=== PATIENT | female | born 1995 | race Caucasian/White ===

== ENCOUNTER 2016-05-13 10:58 | Emergency (ER) | payer MEDICAID ==
[2016-05-13] MEDS ORDERED: Sodium Chloride 0.9% 1,000 ML IV ONE (11:03)
--- NOTE | 2016-05-13 11:06 | EDM.PDOC ---
ED HPI GENERAL MEDICAL PROBLEM - General Stated Complaint: SEIZURES Time Seen by Provider: 05/13/16 11:02 - History of Present Illness INITIAL COMMENTS - FREE TEXT/NARRATIVE: HISTORY AND PHYSICAL: History of present illness: Patient is a 20 white female approximately 34 weeks with a known seizure disorder who said approximately 9 seizures since 2013 she does have a scheduled neurology appointment she is on no antiseizure medication she has seizure today with generalized witnessed at work her socioeconomically having bit her lip there is no other associated trauma she presents here awake alert oriented by paramedics. This time she denies abdominal pain vaginal bleeding or other concern Review of systems: As per history of present illness and below otherwise all systems reviewed and negative. Past medical history: As per history of present illness and as reviewed below otherwise noncontributory. Surgical history: As per history of present illness and as reviewed below otherwise noncontributory. Social history: No reported history of drug or alcohol abuse. Family history: As per history of present illness and as reviewed below otherwise noncontributory. Physical exam: HEENT: Atraumatic, normocephalic, pupils reactive, negative for conjunctival pallor or scleral icterus, mucous membranes moist, throat clear, neck supple, nontender, trachea midline. Lungs: Clear to auscultation, breath sounds equal bilaterally, chest nontender. Heart: S1S2, regular, negative for clicks, rubs, or JVD. Abdomen: Soft, nondistended, nontender. Negative for masses or hepatosplenomegaly. Negative for costovertebral tenderness. Pelvis: Stable nontender. Genitourinary: Deferred. Rectal: Deferred. Extremities: Atraumatic, negative for cords or calf pain. Neurovascular unremarkable. Neuro: Awake, alert, oriented. Cranial nerves II through XII unremarkable. Cerebellum unremarkable. Motor and sensory unremarkable throughout. Exam nonfocal. Diagnostics: CBC CMP prolactin UA urine drug screen Therapeutics: Normal saline 1 L bolus Impression: #1 seizure with known seizure disorder #2 34 week intrauterine Definitive disposition and diagnosis as appropriate pending reevaluation and review of above. - Related Data Allergies Allergy/AdvReac Type Severity Reaction Status Date / Time sulfamethoxazole Allergy Rash Verified 02/21/15 22:06 [From Bactrim] trimethoprim [From Bactrim] Allergy Rash Verified 02/21/15 22:06 Home Meds: Home Meds . [No Known Home Meds] 01/27/15 [History] Past Medical History Other HEENT History: tonsilectomy Cardiovascular History: Reports: None Respiratory History: Reports: None Gastrointestinal History: Reports: Chronic diarrhea Genitourinary History: Reports: None Other Genitourinary History: burning with urination DEPUTY OF COUNTER INTELLIGENCE History: Reports: Other OB/BYN History: states that she "she doesn't get periods". "cyst on ovaries" Other Musculoskeletal History: history of ankle surgery left Neurological History: Reports: Seizure, Other (see below) Other Neuro History: states seizures episodes related to "low sodium", never been investigated Psychiatric History: Reports: None Hematologic History: Reports: None Immunologic History: Reports: None Oncologic (Cancer) History: Reports: None Dermatologic History: Reports: Other (see below) Other Dermatologic History: rash - Past Surgical History HEENT Surgical History: Reports: Tonsillectomy Other HEENT Surgeries/Procedures: sore throat, difficulty swallowing Social & Family History - Family History Family Medical History: Noncontributory - Tobacco Use Smoking Status *Q: Unknown Ever Smoked Second Hand Smoke Exposure: No - Recreational Drug Use Recreational Drug Use: No Drug Use in Last 12 Months: No Recreational Drug Type: Reports: Heroin, Marijuana/Hashish Recreational Drug Use Frequency: Not Used In Over 1 Year ED ROS GENERAL - Review of Systems Review Of Systems: ROS reveals no pertinent complaints other than HPI. ED EXAM, GENERAL - Physical Exam Exam: See Below (See dictation) Course - Orders/Labs/Meds Orders: Active Orders 24 hr Category Date Time Status OB Ltd 1 or More Fetus [US] Stat Exams 05/13/16 11:18 Ordered COMPREHENSIVE METABOLIC PN,CMP [CHEM] Stat Lab 05/13/16 11:14 Received PROLACTIN [CHEM] Stat Lab 05/13/16 11:14 Received Sodium Chloride 0.9% [Normal Saline] 1,000 ml Med 05/13/16 11:03 Active IV STAT Medication Orders Sodium Chloride (Normal Saline) 1,000 mls @ 999 mls/hr IV STAT ONE Stop: 05/13/16 12:03 Last Admin: 05/13/16 11:16 Dose: 999 mls/hr Labs: Laboratory Tests 05/13/16 05/13/16 05/13/16 Range/Units 11:14 11:25 11:25 WBC 7.23 (4.0-11.0) K/uL RBC 4.50 (4.30-5.90) M/uL Hgb 12.6 (12.0-16.0) g/dL Hct 38.0 (36.0-46.0) % MCV 84.4 (80.0-98.0) fL MCH 28.0 (27.0-32.0) pg MCHC 33.2 (31.0-37.0) g/dL RDW Std Deviation 42.5 (28.0-62.0) fl RDW Coeff of Evon 14 (11.0-15.0) % Plt Count 155 (150-400) K/uL MPV 11.60 (7.40-12.00) fL Neut % (Auto) 63.5 (48.0-80.0) % Lymph % (Auto) 29.0 (16.0-40.0) % [place] % (Auto) 6.6 (0.0-15.0) % Eos % (Auto) 0.6 (0.0-7.0) % Baso % (Auto) 0.3 (0.0-1.5) % Neut # 4.6 (1.4-5.7) K/uL Lymph # 2.1 (0.6-2.4) K/uL [place] # 0.5 (0.0-0.8) K/uL Eos # 0.0 (0.0-0.7) K/uL Baso # 0.0 (0.0-0.1) K/uL Nucleated RBC % 0.0 /100WBC Nucleated RBCs # 0 K/uL Urine Color YELLOW Urine Appearance CLEAR Urine pH 5.5 (5.0-8.0) Ur Specific Stamps 1.020 (1.001-1.035) Urine Protein TRACE (NEGATIVE) mg/dL Urine Glucose (UA) NEGATIVE (NEGATIVE) mg/dL Urine Ketones NEGATIVE (NEGATIVE) mg/dL Urine Occult Blood NEGATIVE (NEGATIVE) Urine Nitrite NEGATIVE (NEGATIVE) Urine Bilirubin NEGATIVE (NEGATIVE) Urine Urobilinogen 0.2 (<2.0) EU/dL Ur Leukocyte Esterase NEGATIVE (NEGATIVE) Urine RBC 0-2 (0-2/HPF) Urine WBC 0-2 (0-5/HPF) Ur Epithelial Cells FEW (NONE-FEW) Urine Bacteria FEW (NEGATIVE) Urine Mucus LIGHT (NONE-MOD) Urine Opiates Screen NEGATIVE (NEGATIVE) Ur Oxycodone Screen NEGATIVE (NEGATIVE) Urine Methadone Screen NEGATIVE (NEGATIVE) Ur Barbiturates Screen NEGATIVE (NEGATIVE) Ur Phencyclidine Scrn NEGATIVE (NEGATIVE) Ur Amphetamine Screen NEGATIVE (NEGATIVE) U Methamphetamines Scrn NEGATIVE (NEGATIVE) U Benzodiazepines Scrn NEGATIVE (NEGATIVE) U Cocaine Metab Screen NEGATIVE (NEGATIVE) U Marijuana (THC) Screen NEGATIVE (NEGATIVE) Meds: Medications Generic Name Dose Route Start Last Admin Trade Name Freq PRN Reason Stop Dose Admin Sodium Chloride 1,000 mls @ 999 mls/hr 05/13/16 11:03 05/13/16 11:16 Normal Saline IV 05/13/16 12:03 999 mls/hr STAT ONE Administration Departure - Departure Time of Disposition: 11:51 Disposition: Home, Self-Care 01 Condition: good Clinical Impression: Third trimester , Seizure disorder Additional Instructions: The following information is given to patients seen in the emergency department who are being discharged to home. This information is to outline your options for follow-up care. We provide all patients seen in our emergency department with a follow-up referral. The need for follow-up, as well as the timing and circumstances, are variable depending upon the specifics of your emergency department visit. If you don't have a primary care physician on staff, we will provide you with a referral. We always advise you to contact your personal physician following an emergency department visit to inform them of the circumstance of the visit and for follow-up with them and/or the need for any referrals to a consulting specialist. The emergency department will also refer you to a specialist when appropriate. This referral assures that you have the opportunity for followup care with a specialist. All of these measure are taken in an effort to provide you with optimal care, which includes your followup. Under all circumstances we always encourage you to contact your private physician who remains a resource for coordinating your care. When calling for followup care, please make the office aware that this follow-up is from your recent emergency room visit. If for any reason you are refused follow-up, please contact the [facility] emergency department at and asked to speak to the emergency department charge nurse. 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
[2016-05-13 11:58] LABS: CHLORIDE,CL 110 mmol/L (98-110); SODIUM,NA 138 mmol/L (136-146)
--- NOTE | 2016-05-13 12:33 | US ---
EXAMINATION: Transabdominal obstetric ultrasound HISTORY: , seizure COMPARISON: 03/31/2016 TECHNIQUE: Grayscale, color Doppler, spectral Doppler images obtained transabdominally. FINDINGS: There is a single live intrauterine with a heart rate of 130 bpm. Placenta is an terior and appears grossly intact. Amniotic fluid index is normal. Biparietal diameter measures 8.4 cm, head circumference measures 30.1 cm, the abdominal circumference measures 30.3 cm, and the femor al length is 6.5 cm. This gives an estimated gestational age of 33 weeks and 5 days with an estimate d date of delivery at 06/26/2016. Overall the fetus is within the 61st percentile. IMPRESSION: Single live intrauterine .
[2016-05-13 13:49] VITALS: BP 106/49
== END 2016-05-13 12:35 | disposition other institution (70) ==
LOC: MW.ED 10:58
DX: O99.353 Diseases of the nervous system complicating pregnancy, third trimester (principal); G40.909 Epilepsy, unspecified, not intractable, without status epilepticus; Z3A.34 34 weeks gestation of pregnancy; Z88.2 Allergy status to sulfonamides; Z88.6 Allergy status to analgesic agent; Z98.890 Other specified postprocedural states
CPT/HCPCS: 36415; 76815; 80053; 81001; 84146; 85025; 96360; 99285; G0478; J7040; 80305; 99284

== ENCOUNTER 2016-05-13 12:30 | Outpatient (CLI) | payer MEDICAID ==
[2016-05-13] MEDS ORDERED: Acetaminophen 325 MG Tab PO PRN (12:39)
[2016-05-13] MEDS ORDERED: Acetaminophen 500 MG Tab PO PRN (12:54)
--- NOTE | 2016-05-13 22:38 | CONS ---
DATE OF CONSULTATION: DATE OF : 1995 PRIMARY CARE PHYSICIAN: None PCP HISTORY: Ms. Cates is a 20-year-old patient. She is 34 weeks plus 3 . She is followed in our clinic primarily by the nurse appraisal manager. The patient have a history of seizure and she came today to the emergency room. She said she passed out and she thinks she had a seizure at work her, that was not witnessed. The patient when she came to the emergency room she was not postictal and she was evaluated by the emergency room physician and her evaluation was essentially is normal. The patient is sent to labor and delivery for further evaluation of the . The patient have reactive NST. Her vital signs were stable. She was not bleeding. She was not dilated. The patient has history of seizure and she used to take medication for the seizure, but the patient discontinued the medication on her on few years back, because she cannot afford her medication. However, the patient stated she did not have any seizure all these years except unwitnessed, unverified seizure, she claimed, she had when she came to the emergency room. The patient used to be on Dilantin 100 mg p.o. t.i.d. She is scheduled to see our local neurologist in two weeks. I discussed this finding with the patient and I am going to start her back on her previous medicine of Dilantin 100 mg p.o. t.i.d. and I encouraged her to keep her OB appointment and to keep her neurology appointment, and we will update her medication in accordance with the recommendation of the consultation of the neurologist. PATRICIA / WILLIS /[id number]
== END 2016-05-13 17:33 | disposition home or self-care (01) ==
LOC: MW.OBCHECK 12:30 → MW.OB 12:33 → MW.OBCHECK 17:33
PROVIDERS: ATTEND Obstetrics & Gynecology
DX: Z34.90 Encounter for supervision of normal pregnancy, unspecified, unspecified trimester (principal); W19.XXXA Unspecified fall, initial encounter
CPT/HCPCS: 59025; A9270

== ENCOUNTER 2016-05-20 22:47 | Emergency (ER) | payer MEDICAID ==
--- NOTE | 2016-05-20 22:54 | EDM.PDOC ---
ED HPI GENERAL MEDICAL PROBLEM - General Chief Complaint: ENT Problem Stated Complaint: TOOTH PAIN/ 34WEEKS Time Seen by Provider: 05/20/16 22:51 - History of Present Illness INITIAL COMMENTS - FREE TEXT/NARRATIVE: HISTORY AND PHYSICAL: History of present illness: Patient is a 20-year-old female presented concern of toothache been worse over the last several days she does have a scheduled dentist appointment she is also she's had no problems with her has been going well and she's had regular care. Review of systems: As per history of present illness and below otherwise all systems reviewed and negative. Past medical history: As per history of present illness and as reviewed below otherwise noncontributory. Surgical history: As per history of present illness and as reviewed below otherwise noncontributory. Social history: No reported history of drug or alcohol abuse. Family history: As per history of present illness and as reviewed below otherwise noncontributory. Physical exam: HEENT: Atraumatic, normocephalic, pupils reactive, negative for conjunctival pallor or scleral icterus, mucous membranes moist, throat clear, neck supple, nontender, trachea midline. Ovaled dental caries noted some mild gingival edema bilateral lower molar region Lungs: Clear to auscultation, breath sounds equal bilaterally, chest nontender. Heart: S1S2, regular, negative for clicks, rubs, or JVD. Abdomen: Soft, nondistended, nontender. Negative for masses or hepatosplenomegaly. Negative for costovertebral tenderness. Pelvis: Stable nontender. Genitourinary: Deferred. Rectal: Deferred. Extremities: Atraumatic, negative for cords or calf pain. Neurovascular unremarkable. Neuro: Awake, alert, oriented. Cranial nerves II through XII unremarkable. Cerebellum unremarkable. Motor and sensory unremarkable throughout. Exam nonfocal. Diagnostics: None Therapeutics: None Impression: #1 dentalgia #2 multiple dental caries #3 rule out that the #4 intrauterine Definitive disposition and diagnosis as appropriate pending reevaluation and review of above. - Related Data Allergies Allergy/AdvReac Type Severity Reaction Status Date / Time sulfamethoxazole Allergy Rash Verified 05/13/16 12:34 [From Bactrim] trimethoprim [From Bactrim] Allergy Rash Verified 05/13/16 12:34 Home Meds: Home Meds Ondansetron HCl [Zofran] 4 mg PO DAILY 05/13/16 [History] Vits #93/Iron Fum/FA [ Formula Tablet] 1 each PO DAILY [History] Past Medical History Other HEENT History: tonsilectomy Cardiovascular History: Reports: None Respiratory History: Reports: None Gastrointestinal History: Reports: Chronic diarrhea Genitourinary History: Reports: None Other Genitourinary History: burning with urination AGENT BASED MODELER History: Reports: Other OB/BYN History: states that she "she doesn't get periods". "cyst on ovaries" Other Musculoskeletal History: history of ankle surgery left Neurological History: Reports: Seizure, Other (see below) Other Neuro History: states seizures episodes related to "low sodium", never been investigated Psychiatric History: Reports: None Hematologic History: Reports: None Immunologic History: Reports: None Oncologic (Cancer) History: Reports: None Dermatologic History: Reports: Other (see below) Other Dermatologic History: rash - Past Surgical History HEENT Surgical History: Reports: Tonsillectomy Other HEENT Surgeries/Procedures: sore throat, difficulty swallowing Social & Family History - Family History Family Medical History: Noncontributory - Tobacco Use Smoking Status *Q: Unknown Ever Smoked Second Hand Smoke Exposure: No - Recreational Drug Use Recreational Drug Use: No Drug Use in Last 12 Months: No Recreational Drug Type: Reports: Heroin, Marijuana/Hashish Recreational Drug Use Frequency: Not Used In Over 1 Year ED ROS GENERAL - Review of Systems Review Of Systems: ROS reveals no pertinent complaints other than HPI. ED EXAM, GENERAL - Physical Exam Exam: See Below (See dictation) Departure - Departure Time of Disposition: 22:53 Disposition: Home, Self-Care 01 Condition: good Clinical Impression: Dentalgia, Dental caries, Dental abscess Forms: ED Department Discharge Additional Instructions: The following information is given to patients seen in the emergency department who are being discharged to home. This information is to outline your options for follow-up care. We provide all patients seen in our emergency department with a follow-up referral. The need for follow-up, as well as the timing and circumstances, are variable depending upon the specifics of your emergency department visit. If you don't have a primary care physician on staff, we will provide you with a referral. We always advise you to contact your personal physician following an emergency department visit to inform them of the circumstance of the visit and for follow-up with them and/or the need for any referrals to a consulting specialist. The emergency department will also refer you to a specialist when appropriate. This referral assures that you have the opportunity for followup care with a specialist. All of these measure are taken in an effort to provide you with optimal care, which includes your followup. Under all circumstances we always encourage you to contact your private physician who remains a resource for coordinating your care. When calling for followup care, please make the office aware that this follow-up is from your recent emergency room visit. If for any reason you are refused follow-up, please contact the [facility] emergency department at and asked to speak to the emergency department charge nurse. Followup dentist as scheduled penicillin is prescribed Tylenol as directed follow up private medical doctor/AGENT BASED MODELER 24-48 hours and return as needed as discussed
[2016-05-20 23:03] VITALS: BP 140/80
== END 2016-05-20 23:02 | disposition home or self-care (01) ==
LOC: MW.ED 22:47
DX: K04.7 Periapical abscess without sinus (principal); Z88.2 Allergy status to sulfonamides; Z88.6 Allergy status to analgesic agent; Z79.899 Other long term (current) drug therapy; Z98.890 Other specified postprocedural states
CPT/HCPCS: 99283

== ENCOUNTER 2016-06-22 05:57 | Inpatient (IN) | payer MEDICAID ==
[2016-06-22] MEDS ORDERED: Sodium Chloride 0.9% 2.5 ML Syringe FLUSH PRN (06:07)
[2016-06-22] MEDS ORDERED: Misoprostol 200 MCG Tab PO PRN (06:07)
[2016-06-22] MEDS ORDERED: Nalbuphine 10 MG/1 ML Vial IVPUSH PRN (06:07)
[2016-06-22] MEDS ORDERED: Carboprost Tromethamine 250 MCG/1 ML Amp IM PRN (06:07)
[2016-06-22] MEDS ORDERED: Butorphanol 1 MG/ML SDV IVPUSH PRN (06:07)
[2016-06-22] MEDS ORDERED: Methylergonovine 0.2 MG/1 ML Amp IM PRN (06:07)
[2016-06-22] MEDS ORDERED: Terbutaline 1 MG/ML SDV SUBCUT PRN (06:07)
[2016-06-22] MEDS ORDERED: Water For Irrigation,Sterile 1,000 ML Container IRR PRN (06:07)
[2016-06-22] MEDS ORDERED: Lidocaine 1% 50 ML MDV INJECT PRN (06:07)
[2016-06-22] MEDS ORDERED: Sodium Chloride 0.9% 10 ML Syringe FLUSH PRN (06:07)
[2016-06-22] MEDS ORDERED: Oxytocin/Lactated Ringers 30 UNIT/500 ML BAG IV SCH ×2 (06:15)
[2016-06-22] MEDS: Lactated Ringers 1,000 ML IV SCH ×3 (07:28→15:06)
[2016-06-22] MEDS ORDERED: Misoprostol 25 MCG (1/4 of 100 MCG) Tab PO ONE (08:10)
[2016-06-22] MEDS ORDERED: Misoprostol 25 MCG (1/4 of 100 MCG) Tab VAG ONE (08:11)
--- NOTE | 2016-06-22 08:38 | PCM.LDHP ---
L&D History of Present Illness - General Date of Service: 06/22/16 Admit Problem/Dx: Patient Status Order with Admit Dx/Problem 06/22/16 06:07 Patient Status [ADT] Routine Admission Diagnosis/Problem Admission Diagnosis/Problem Source of Information: Patient History Limitations: Reports: No limitations - History of Present Illness Improves with: Reports: None Worsens with: Reports: None Associated Symptoms: Reports: N - Related Data Allergies/Adverse Reactions: Allergies Allergy/AdvReac Type Severity Reaction Status Date / Time sulfamethoxazole Allergy Rash Verified 05/13/16 12:34 [From Bactrim] trimethoprim [From Bactrim] Allergy Rash Verified 05/13/16 12:34 Home Medications: Home Meds Ondansetron HCl [Zofran] 4 mg PO DAILY 05/13/16 [History] Vits #93/Iron Fum/FA [ Formula Tablet] 1 each PO DAILY [History] Phenytoin 100 mg PO TID 06/22/16 [History] Past Medical History Other HEENT History: tonsilectomy Cardiovascular History: Reports: None Respiratory History: Reports: None Gastrointestinal History: Reports: Chronic diarrhea Genitourinary History: Reports: None Other Genitourinary History: 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 "cyst on ovaries" Other Musculoskeletal History: history of ankle surgery left Neurological History: Reports: Seizure, Other (see below) Other Neuro History: states seizures episodes related to "low sodium", never been investigated Psychiatric History: Reports: None Hematologic History: Reports: None Immunologic History: Reports: None Oncologic (Cancer) History: Reports: None Dermatologic History: Reports: Other (see below) Other Dermatologic History: rash - Past Surgical History HEENT Surgical History: Reports: Adenoidectomy, Tonsillectomy Social & Family History - Family History Family Medical History: Noncontributory Cardiac: Reports: Other (see below) Other Cardiac Family History: "heart disease" Endocrine/Metabolic: Reports: Diabetes, type I, Diabetes, type II - Tobacco Use Smoking Status *Q: Never Smoker Second Hand Smoke Exposure: No - Caffeine Use Caffeine Use: Reports: None - Recreational Drug Use Recreational Drug Use: No Drug Use in Last 12 Months: No Recreational Drug Type: Reports: Heroin, Marijuana/Hashish Recreational Drug Use Frequency: Not Used In Over 1 Year H&P Review of Systems - Review of Systems: Review Of Systems: See Below General: Reports: no symptoms HEENT: Reports: no symptoms Pulmonary: Reports: No Symptoms Cardiovascular: Reports: no symptoms Gastrointestinal: Reports: No symptoms Genitourinary: Reports: no symptoms Musculoskeletal: Reports: no symptoms Skin: Reports: no symptoms Psychiatric: Reports: no symptoms Neurological: Reports: No Symptoms Hematologic/Lymphatic: Reports: no symptoms Immunologic: Reports: no symptoms L&D Exam - Exam Exam: See Below - Vital Signs Weight: 90.5 kg - OB Specific Contraction Intensity: Mild movement: active heart tones: present heart tones per min: 129 Presentation: Vertex - Patient Data Lab Results last 24 hrs: Laboratory Results - last 24 hr 06/22/16 06/22/16 Range/Units 06:46 06:46 WBC 8.75 (4.0-11.0) K/uL RBC 4.31 (4.30-5.90) M/uL Hgb 12.4 (12.0-16.0) g/dL Hct 36.8 (36.0-46.0) % MCV 85.4 (80.0-98.0) fL MCH 28.8 (27.0-32.0) pg MCHC 33.7 (31.0-37.0) g/dL RDW Std Deviation 41.4 (28.0-62.0) fl RDW Coeff of Evon 14 (11.0-15.0) % Plt Count 175 (150-400) K/uL MPV 11.70 (7.40-12.00) fL Blood Type O NEGATIVE Antibody Screen NEGATIVE Result Diagrams: 06/22/16 06:46 Problem List Initiated/Reviewed/Updated: Yes Orders Last 24hrs: Active Orders 24 hr Category Date Time Status Patient Status [ADT] Routine ADT 06/22/16 06:07 Active Bedrest Bathroom Privileges [RC] ASDIRECTED Care 06/22/16 06:07 Active Communication Order [RC] ASDIRECTED Care 06/22/16 06:07 Active Communication Order [RC] ASDIRECTED Care 06/22/16 06:07 Active Heart Tones [RC] CONTINUOUS Care 06/22/16 06:07 Active Non Stress Test [RC] PER UNIT ROUTINE Care 06/22/16 06:07 Active May Shower [RC] ASDIRECTED Care 06/22/16 06:07 Active Notify Provider [RC] PRN Care 06/22/16 06:07 Active Notify Provider [RC] PRN Care 06/22/16 06:07 Active Oxygen Therapy [RC] ASDIRECTED Care 06/22/16 06:07 Active Peripheral IV Care [RC] . DIRECTED Care 06/22/16 06:07 Active Up ad Vera [RC] ASDIRECTED Care 06/22/16 06:07 Active Vaginal Exam [RC] PRN Care 06/22/16 06:07 Active Vaginal Exam [RC] PRN Care 06/22/16 06:07 Active Vital Signs [RC] PER UNIT ROUTINE Care 06/22/16 06:07 Active Vital Signs [RC] PER UNIT ROUTINE Care 06/22/16 06:07 Active Regular Diet [DIET] Diet 06/22/16 Lunch Active Butorphanol [Stadol] Med 06/22/16 06:07 Active 1 mg IVPUSH ASDIRECTED PRN Carboprost Tromethamine [Hemabate DS] Med 06/22/16 06:07 Active 250 mcg IM ASDIRECTED PRN Lactated Ringers [Ringers, Lactated] 1,000 ml Med 06/22/16 06:15 Active IV ASDIRECTED Lidocaine 1% [Xylocaine 1%] Med 06/22/16 06:07 Active 50 ml INJECT .ONCE PRN Methylergonovine [Methergine] Med 06/22/16 06:07 Active 0.2 mg IM ASDIRECTED PRN Misoprostol [Cytotec] Med 06/22/16 06:07 Active 200 mcg PO .ONCE PRN Nalbuphine [Nubain] Med 06/22/16 06:07 Active 10 mg IVPUSH ASDIRECTED PRN Oxytocin/Lactated Ringers [Pitocin in LR 30 Units/500 Med 06/22/16 06:15 Active ML] 30 unit in 500 ml IV TITRATE Sodium Chloride 0.9% [Saline Flush] Med 06/22/16 06:07 Active 10 ml FLUSH ASDIRECTED PRN Sodium Chloride 0.9% [Saline Flush] Med 06/22/16 06:07 Active 2.5 ml FLUSH ASDIRECTED PRN Terbutaline [Brethine] Med 06/22/16 06:07 Active 0.25 mg SUBCUT ASDIRECTED PRN Water For Irrigation,Sterile [Sterile Water for Med 06/22/16 06:07 Active Irrigation] 1,000 ml IRR ASDIRECTED PRN Scalp Electrode [WOMSER] Per Unit Routine Oth 06/22/16 06:07 Ordered Medication Administration Instruction [OM.PC] Q3H Oth 06/22/16 06:15 Ordered Peripheral IV Insertion Adult [OM.PC] Routine Oth 06/22/16 06:07 Ordered Resuscitation Status Routine Resus Stat 06/22/16 06:07 Ordered Medication Orders Butorphanol Tartrate (Stadol) 1 mg IVPUSH ASDIRECTED PRN PRN Reason: Pain Carboprost Tromethamine (Hemabate Ds) 250 mcg IM ASDIRECTED PRN PRN Reason: Post Hemorrhage Lactated Ringer's (Ringers, Lactated) 1,000 mls @ 150 mls/hr IV ASDIRECTED NITIN Last Admin: 06/22/16 07:28 Dose: 150 mls/hr Oxytocin/Lactated Ringer's (Pitocin In Lr 30 Units/500 Ml) 30 unit in 500 mls @ 2 mls/hr IV TITRATE NITIN; 2 MUNITS/MIN PRN Reason: Protocol Last Titration: 06/22/16 08:20 Dose: 0 munits/min, 0 mls/hr Titration: 06/22/16 08:01 Dose: 4 munits/min, 4 mls/hr Admin: 06/22/16 07:27 Dose: 2 munits/min, 2 mls/hr Lidocaine HCl (Xylocaine 1%) 50 ml INJECT .ONCE PRN PRN Reason: Laceration repair Methylergonovine Maleate (Methergine) 0.2 mg IM ASDIRECTED PRN PRN Reason: Post Hemorrhage Misoprostol (Cytotec) 200 mcg PO .ONCE PRN PRN Reason: Post Hemorrhage Nalbuphine HCl (Nubain) 10 mg IVPUSH ASDIRECTED PRN PRN Reason: Pain (severe 7-10) Stop: 06/24/16 06:08 Sodium Chloride (Saline Flush) 10 ml FLUSH ASDIRECTED PRN PRN Reason: Keep Vein Open Sodium Chloride (Saline Flush) 2.5 ml FLUSH ASDIRECTED PRN PRN Reason: Keep Vein Open Sterile Water (Sterile Water For Irrigation) 1,000 ml IRR ASDIRECTED PRN PRN Reason: delivery Terbutaline Sulfate (Brethine) 0.25 mg SUBCUT ASDIRECTED PRN PRN Reason: Tacysystole Assessment/Plan Comment:: Term admitted for induction cervical examination in 2-3 cm 50 vertex and out of the pelvis she is para 1001 the plan is to use side effects and Pitocin for induction.
[2016-06-22] MEDS ORDERED: fentaNYL 100 MCG/2 ML SDV ONE (14:24)
[2016-06-22] MEDS ORDERED: Ropivacaine 0.2% 2 MG/ML 20 ML SDV ONE (14:24)
[2016-06-22] MEDS ORDERED: Ropivacaine HCl/PF 100 ML ONE (14:24)
--- NOTE | 2016-06-22 15:14 | PCM.PREANE ---
Preanesthetic Assessment - Anesthesia/Transfusion/Family Hx Anesthesia History: Prior Anesthesia Without Reaction Family History of Anesthesia Reaction: No Transfusion History: No Prior Transfusion(s) - Review of Systems General: No Symptoms Pulmonary: No Symptoms Cardiovascular: No Symptoms Gastrointestinal: No symptoms Neurological: No Symptoms, Seizure (Had seizure recently) Other: Reports: None - Physical Assessment NPO Status Date: 06/22/16 NPO Status Time: 15:13 (cl liquids) Height: 1.73 m Weight: 90.5 kg ASA Class: 3 Mental Status: Alert & Oriented x3 Airway Class: Mallampati = 3 Dentition: Reports: Normal Dentition Thyro-Mental Finger Breadths: 3 Mouth Opening Finger Breadths: 3 Lungs: Clear to auscultation, Normal respiratory effort Cardiovascular: Regular Rate, Regular Rhythm - Lab Values: Laboratory Last Values WBC 8.75 K/uL (4.0-11.0) 06/22/16 06:46 RBC 4.31 M/uL (4.30-5.90) 06/22/16 06:46 Hgb 12.4 g/dL (12.0-16.0) 06/22/16 06:46 Hct 36.8 % (36.0-46.0) 06/22/16 06:46 MCV 85.4 fL (80.0-98.0) 06/22/16 06:46 MCH 28.8 pg (27.0-32.0) 06/22/16 06:46 MCHC 33.7 g/dL (31.0-37.0) 06/22/16 06:46 RDW Std Deviation 41.4 fl (28.0-62.0) 06/22/16 06:46 RDW Coeff of Evon 14 % (11.0-15.0) 06/22/16 06:46 Plt Count 175 K/uL (150-400) 06/22/16 06:46 MPV 11.70 fL (7.40-12.00) 06/22/16 06:46 Blood Type O NEGATIVE 06/22/16 06:46 Antibody Screen NEGATIVE 06/22/16 06:46 - Allergies Allergies/Adverse Reactions: Allergies Allergy/AdvReac Type Severity Reaction Status Date / Time sulfamethoxazole Allergy Rash Verified 05/13/16 12:34 [From Bactrim] trimethoprim [From Bactrim] Allergy Rash Verified 05/13/16 12:34 - Blood Blood Available: Yes Product(s) Available: PRBC - Acknowledgements Anesthesia Type Planned: Epidural Pt an Appropriate Candidate for the Planned Anesthesia: Yes Alternatives and Risks of Anesthesia Discussed w Pt/Guardian: Yes Pt/Guardian Understands and Agrees with Anesthesia Plan: Yes PreAnesthesia Questionnaire Other HEENT History: tonsilectomy Cardiovascular History: Reports: None, Other (see below) Other Cardiovascular History: gestational hypertension previous . Infrequent hypertension during this . Respiratory History: Reports: None Gastrointestinal History: Reports: Chronic diarrhea Other Gastrointestinal History: Pt states is resolved. Was from a medication. 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 "cyst on ovaries". reports that ovarian cysts resolved Other Musculoskeletal History: history of ankle surgery left Neurological History: Reports: Seizure, Other (see below) Other Neuro History: states seizures episodes related to "low sodium", never been investigated. seizures have been since last Psychiatric History: Reports: None Hematologic History: Reports: None Immunologic History: Reports: None Oncologic (Cancer) History: Reports: None Dermatologic History: Reports: Other (see below) Other Dermatologic History: rash - Past Surgical History HEENT Surgical History: Reports: Adenoidectomy, Tonsillectomy - SUBSTANCE USE Smoking Status *Q: Never Smoker Second Hand Smoke Exposure: No Recreational Drug Use History: No Recreational Drug Type: Reports: Heroin, Marijuana/Hashish - HOME MEDS Home Medications: Home Meds Ondansetron HCl [Zofran] 4 mg PO DAILY 05/13/16 [History] Vits #93/Iron Fum/FA [ Formula Tablet] 1 each PO DAILY [History] Phenytoin 100 mg PO TID 06/22/16 [History] - CURRENT (IN HOUSE) MEDS Current Meds: Current Medications Butorphanol Tartrate (Stadol) 1 mg IVPUSH ASDIRECTED PRN PRN Reason: Pain Carboprost Tromethamine (Hemabate Ds) 250 mcg IM ASDIRECTED PRN PRN Reason: Post Hemorrhage Lactated Ringer's (Ringers, Lactated) 1,000 mls @ 150 mls/hr IV ASDIRECTED NITIN Last Admin: 06/22/16 15:06 Dose: 150 mls/hr Oxytocin/Lactated Ringer's (Pitocin In Lr 30 Units/500 Ml) 30 unit in 500 mls @ 2 mls/hr IV TITRATE NITIN; 2 MUNITS/MIN PRN Reason: Protocol Last Titration: 06/22/16 12:12 Dose: 2 munits/min, 2 mls/hr Lidocaine HCl (Xylocaine 1%) 50 ml INJECT .ONCE PRN PRN Reason: Laceration repair Methylergonovine Maleate (Methergine) 0.2 mg IM ASDIRECTED PRN PRN Reason: Post Hemorrhage Misoprostol (Cytotec) 200 mcg PO .ONCE PRN PRN Reason: Post Hemorrhage Nalbuphine HCl (Nubain) 10 mg IVPUSH ASDIRECTED PRN PRN Reason: Pain (severe 7-10) Stop: 06/24/16 06:08 Sodium Chloride (Saline Flush) 10 ml FLUSH ASDIRECTED PRN PRN Reason: Keep Vein Open Sodium Chloride (Saline Flush) 2.5 ml FLUSH ASDIRECTED PRN PRN Reason: Keep Vein Open Sterile Water (Sterile Water For Irrigation) 1,000 ml IRR ASDIRECTED PRN PRN Reason: delivery Terbutaline Sulfate (Brethine) 0.25 mg SUBCUT ASDIRECTED PRN PRN Reason: Tacysystole Discontinued Medications Fentanyl (Sublimaze) Confirm Administered Dose 300 mcg .ROUTE .STK-MED ONE Stop: 06/22/16 14:25 Oxytocin/Lactated Ringer's (Pitocin In Lr 30 Units/500 Ml) 30 unit in 500 mls @ 500 mls/hr IV TITRATE NITIN PRN Reason: 500 MUNITS/MIN Stop: 06/22/16 07:14 Ropivacaine (Naropin 0.2%) Confirm Administered Dose 100 mls @ as directed .ROUTE .STK-MED ONE Stop: 06/22/16 14:25 Misoprostol (Cytotec) 25 mcg PO ONETIME ONE Stop: 06/22/16 08:11 Last Admin: 06/22/16 08:21 Dose: 25 mcg Misoprostol (Cytotec) 25 mcg VAG ONETIME ONE Stop: 06/22/16 08:12 Last Admin: 06/22/16 08:22 Dose: 25 mcg Ropivacaine (Naropin 0.2%) Confirm Administered Dose 20 ml .ROUTE .STK-MED ONE Stop: 06/22/16 14:25 - Free Text/Narrative Note: Labor Analgesia/Epidural Procedure start date: 06/22/16 time: 1421 Attending provider aware Chart reviewed Permit signed Labs reviewed VS/ FHR reviewed Pt identified/ID band Pt assessed Risks/Benefits discussed and accepted Monitors in place (BP, HR, SPO2) Patient, Site, Procedure Verification, Pause. Pain "10/10" Fluid bolus infused (fluid type and amount): 1000 ml LR Position: Sitting @ 1435 Prep: Betadine X 3 Sterile Drape Intradermal Wheal: 3 ml 1% Lidocaine Regional placement level: L4-5 Needle: 17 g Tuohy Approach: Midline Technique: MIRELLA glass syringe with 3 ml Sterile water MIRELLA needle depth: 8.5 cm Paresthesia: None Fluid Obtained: None Catheter insertion time: 1445 Catheter depth at skin: 18 cm Test Dose Time: 1445 RX: 3 ml 1.5% lidocaine with 1:200,000 epi Response: Negative Loading dose Time: 9249-6292 RX: 100 mcg fentanyl followed by 10 ml 0.2% ropivacaine in incremental doses Pt position: semi fowlers with KATIE Continuous infusion Start Time: 1457 RX: 100 ml 0.2% ropivacaine with 200 mcg fentanyl added [2mcg/ml] Continuous infusion rate: 9 ml/hr 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 Repositioned to right tilt but fetus intolerant. FHR only stable in semi fowlers with no tilt. 1523: Epidural dosed with 5 ml 0.5% ropivacaine for continued pain rating of "10/10" with contractions. Positioned to high fowlers. Pt advanced to 9 cm dilation over past hour. 1550: Pt continues to have right sided pain. Nursing staff to insert sweet catheter. Will remain in unit to assist prn. 1409: Dr Calderon here and baby delivered. VS and FHR monitored in unit post placement (See OB traceview for documentation. ) Procedure end date: 06/22/16 time: 1410
[2016-06-22] MEDS ORDERED: Bupivacaine 0.5% 10 ML SDV ONE (15:21)
[2016-06-22] MEDS ORDERED: Acetaminophen 500 MG Tab PO PRN (16:18)
[2016-06-22] MEDS ORDERED: Bisacodyl 10 MG Supp RECTAL PRN (16:18)
[2016-06-22] MEDS ORDERED: Benzocaine/Menthol 20%-0.5% Spray 78 GM Cannister TOP PRN (16:18)
[2016-06-22] MEDS ORDERED: oxyCODONE 5 MG Tab PO PRN (16:18)
[2016-06-22] MEDS ORDERED: Lanolin 100% Cream 7 GM Tube TOP PRN (16:18)
[2016-06-22] MEDS ORDERED: Docusate Sodium 100 MG Cap PO PRN (16:18)
[2016-06-22] MEDS ORDERED: Ibuprofen 400 MG Tab PO PRN (16:18)
[2016-06-22] MEDS: Ibuprofen 800 MG Tab PO PRN (18:55)
[2016-06-22] MEDS: Witch Hazel Medicated Pads 40/Jar TOP PRN (18:57)
--- NOTE | 2016-06-22 20:24 | PCM48HPAN ---
Post Anesthesia Note - EVALUATION WITHIN 48HRS OF ANESTHETIC Vital Signs in Normal Range: Yes Patient Participated in Evaluation: Yes Respiratory Function Stable: Yes Airway Patent: Yes Cardiovascular Function Stable: Yes Hydration Status Stable: Yes Pain Control Satisfactory: Yes Nausea and Vomiting Control Satisfactory: Yes Mental Status Recovered: Yes
[2016-06-22] MEDS: Acetaminophen 500 MG Tab PO PRN (22:43)
--- NOTE | 2016-06-22 23:32 | OR ---
SURGEON: Dave Calderon MD DATE OF PROCEDURE: DELIVER NOTE: Ms. Cates is a 20-year-old patient. She is para 1-0-0-1. She is post dates. 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 She is admitted for elective induction this morning. At the time of admission, she was 3 cm, 70%, vertex, and -3. She started on Cytotec, and then Pitocin. At 12 o'clock, she had an artificial rupture of the membrane with clear fluid. At that time, she was 3 to 4, 80, vertex, -3. The patient then progressed rather rapidly. She had epidural anesthesia for labor analgesia and she was able to accomplish normal spontaneous vaginal delivery. score reported to be 8 and 9. Male fetus. The weight is not available at this time. The placenta delivered spontaneous, complete, and intact. The perineum was intact. There is no laceration. No need for episiotomy. The heart rate was category 1 through the entire process of labor. There was no complication. Estimated blood loss is 350 mL. PATRICIA / WILLIS /[id number]
[2016-06-23] MEDS: Witch Hazel Medicated Pads 40/Jar TOP PRN (07:51)
[2016-06-23] MEDS: Ibuprofen 800 MG Tab PO PRN (07:51)
--- NOTE | 2016-06-23 08:34 | PCM.DCSUM1 ---
Discharge Summary - Discharge Data Discharge Date: 06/23/16 Discharge Disposition: Home, Self-Care 01 Condition: Good - Patient Instructions Diet: Usual Diet as Tolerated Activity: As Tolerated Driving: Do Not Drive Notify Provider of: Fever, Increased Pain, Swelling and Redness - Discharge Plan Home Medications: Home Meds Ondansetron HCl [Zofran] 4 mg PO DAILY 05/13/16 [History] Vits #93/Iron Fum/FA [ Formula Tablet] 1 each PO DAILY [History] Phenytoin 100 mg PO TID 06/22/16 [History] Referrals: [facility] [Outside] Dave Calderon MD [Physician] - 08/02/16 1:30 pm - Patient Data Vitals - Most Recent: Last Vital Signs Temp 37.0 C 06/23/16 04:18 Pulse 55 L 06/23/16 04:18 Resp 17 06/23/16 04:18 BP 114/58 L 06/23/16 04:18 Pulse Ox 98 06/23/16 04:18 Weight - Most Recent: 90.5 kg I&O - Last 24 hours: Intake & Output 06/22/16 06/23/16 06/23/16 22:59 06:59 14:59 Intake Total 2 Balance 2 Lab Results - Last 24 hrs: Laboratory Results - last 24 hr 06/22/16 06/23/16 Range/Units 17:21 04:41 Hgb 10.9 L (12.0-16.0) g/dL Hct 33.7 L (36.0-46.0) % Screen NEGATIVE RhIG Candidate? YES Rhogam Indicated YES, BABY RH POS H Med Orders - Current: Current Medications Acetaminophen (Tylenol Extra Strength) 500 mg PO Q4H PRN PRN Reason: Pain Acetaminophen (Tylenol Extra Strength) 1,000 mg PO Q4H PRN PRN Reason: Pain Last Admin: 06/22/16 22:43 Dose: 1,000 mg Benzocaine/Menthol (Dermoplast Pain Relief 20%-0.5% [place]) 78 gm TOP ASDIRECTED PRN PRN Reason: Perineal Comfort Measure Last Admin: 06/22/16 18:56 Dose: 1 can Bisacodyl (Dulcolax) 10 mg RECTAL .ONCE PRN PRN Reason: Constipation Butorphanol Tartrate (Stadol) 1 mg IVPUSH ASDIRECTED PRN PRN Reason: Pain Carboprost Tromethamine (Hemabate Ds) 250 mcg IM ASDIRECTED PRN PRN Reason: Post Hemorrhage Docusate Sodium (Colace) 100 mg PO BID PRN PRN Reason: Constipation Emollient Ointment (Lansinoh Hpa) 0 gm TOP ASDIRECTED PRN PRN Reason: Sore Nipples Lactated Ringer's (Ringers, Lactated) 1,000 mls @ 150 mls/hr IV ASDIRECTED NITIN Last Admin: 06/22/16 15:06 Dose: 150 mls/hr Oxytocin/Lactated Ringer's (Pitocin In Lr 30 Units/500 Ml) 30 unit in 500 mls @ 2 mls/hr IV TITRATE NITIN; 2 MUNITS/MIN PRN Reason: Protocol Last Titration: 06/22/16 16:00 Dose: 0 munits/min, 0 mls/hr Ibuprofen (Motrin) 400 mg PO Q4H PRN PRN Reason: Pain Ibuprofen (Motrin) 800 mg PO Q6H PRN PRN Reason: Pain Last Admin: 06/23/16 07:51 Dose: 800 mg Lidocaine HCl (Xylocaine 1%) 50 ml INJECT .ONCE PRN PRN Reason: Laceration repair Methylergonovine Maleate (Methergine) 0.2 mg IM ASDIRECTED PRN PRN Reason: Post Hemorrhage Misoprostol (Cytotec) 200 mcg PO .ONCE PRN PRN Reason: Post Hemorrhage Nalbuphine HCl (Nubain) 10 mg IVPUSH ASDIRECTED PRN PRN Reason: Pain (severe 7-10) Stop: 06/24/16 06:08 Oxycodone HCl (Oxycodone) 5 mg PO Q2H PRN PRN Reason: Pain Sodium Chloride (Saline Flush) 10 ml FLUSH ASDIRECTED PRN PRN Reason: Keep Vein Open Sodium Chloride (Saline Flush) 2.5 ml FLUSH ASDIRECTED PRN PRN Reason: Keep Vein Open Sterile Water (Sterile Water For Irrigation) 1,000 ml IRR ASDIRECTED PRN PRN Reason: delivery Terbutaline Sulfate (Brethine) 0.25 mg SUBCUT ASDIRECTED PRN PRN Reason: Tacysystole Shreyas Mackenzie (Tucks) 1 pad TOP ASDIRECTED PRN PRN Reason: comfort care Last Admin: 06/23/16 07:51 Dose: 1 tub Discontinued Medications Bupivacaine HCl (Sensorcaine-Mpf 0.5%) Confirm Administered Dose 10 ml .ROUTE .STK-MED ONE Stop: 06/22/16 15:22 Fentanyl (Sublimaze) Confirm Administered Dose 300 mcg .ROUTE .STK-MED ONE Stop: 06/22/16 14:25 Oxytocin/Lactated Ringer's (Pitocin In Lr 30 Units/500 Ml) 30 unit in 500 mls @ 500 mls/hr IV TITRATE NITIN PRN Reason: 500 MUNITS/MIN Stop: 06/22/16 07:14 Ropivacaine (Naropin 0.2%) Confirm Administered Dose 100 mls @ as directed .ROUTE .STK-MED ONE Stop: 06/22/16 14:25 Misoprostol (Cytotec) 25 mcg PO ONETIME ONE Stop: 06/22/16 08:11 Last Admin: 06/22/16 08:21 Dose: 25 mcg Misoprostol (Cytotec) 25 mcg VAG ONETIME ONE Stop: 06/22/16 08:12 Last Admin: 06/22/16 08:22 Dose: 25 mcg Ropivacaine (Naropin 0.2%) Confirm Administered Dose 20 ml .ROUTE .STK-MED ONE Stop: 06/22/16 14:25 - Exam General: Reports: alert, oriented HEENT: Reports: Pupils equal, Pupils reactive, EOMI, Mucous membr. moist/pink Neck: Reports: supple Lungs: Reports: Clear to auscultation, Normal respiratory effort Cardiovascular: Reports: Regular Rate, Regular Rhythm Abdomen: Reports: bowel sounds present, soft, no tenderness, no distension (Female) Exam: Normal external exam, Normal speculum exam, Normal bimanual exam Rectal (Female) Exam: Normal Exam, Normal rectal tone Back Exam: Reports: normal inspection, full range of motion Extremities: Reports: no edema, normal pulses Skin: Reports: warm, dry, intact Wound/Incisions: Reports: healing well Neurological: Reports: no new focal deficit Psy/Mental Status: Reports: alert, normal affect, normal mood *Q Meaningful Use (DIS) - VTE *Q VTE Criteria *Q: - Stroke *Q Stroke Criteria *Q: - AMI *Q AMI Criteria *Q:
--- NOTE | 2016-06-23 08:34 | PCM.PNPP ---
- General Info Date of Service: 06/23/16 Functional Status: Reports: pain controlled - Review of Systems General: Reports: No Symptoms HEENT: Reports: no symptoms Pulmonary: Reports: no symptoms Cardiovascular: Reports: No Symptoms Gastrointestinal: Reports: No symptoms Genitourinary: Reports: no symptoms Musculoskeletal: Reports: no symptoms Skin: Reports: no symptoms Neurological: Reports: No Symptoms Psychiatric: Reports: no symptoms - General Info Date of Service: 06/23/16 - Patient Data Vital Signs - most recent: Last Vital Signs Temp 37.0 C 06/23/16 04:18 Pulse 55 L 06/23/16 04:18 Resp 17 06/23/16 04:18 BP 114/58 L 06/23/16 04:18 Pulse Ox 98 06/23/16 04:18 Weight - most recent: 90.5 kg I&O - last 24 hours: Intake & Output 06/22/16 06/23/16 06/23/16 22:59 06:59 14:59 Intake Total 2 Balance 2 Lab Results - last 24 hrs: Laboratory Results - last 24 hr 06/22/16 06/23/16 Range/Units 17:21 04:41 Hgb 10.9 L (12.0-16.0) g/dL Hct 33.7 L (36.0-46.0) % Screen NEGATIVE RhIG Candidate? YES Rhogam Indicated YES, BABY RH POS H Med Orders - Current: Current Medications Acetaminophen (Tylenol Extra Strength) 500 mg PO Q4H PRN PRN Reason: Pain Acetaminophen (Tylenol Extra Strength) 1,000 mg PO Q4H PRN PRN Reason: Pain Last Admin: 06/22/16 22:43 Dose: 1,000 mg Benzocaine/Menthol (Dermoplast Pain Relief 20%-0.5% [place]) 78 gm TOP ASDIRECTED PRN PRN Reason: Perineal Comfort Measure Last Admin: 06/22/16 18:56 Dose: 1 can Bisacodyl (Dulcolax) 10 mg RECTAL .ONCE PRN PRN Reason: Constipation Butorphanol Tartrate (Stadol) 1 mg IVPUSH ASDIRECTED PRN PRN Reason: Pain Carboprost Tromethamine (Hemabate Ds) 250 mcg IM ASDIRECTED PRN PRN Reason: Post Hemorrhage Docusate Sodium (Colace) 100 mg PO BID PRN PRN Reason: Constipation Emollient Ointment (Lansinoh Hpa) 0 gm TOP ASDIRECTED PRN PRN Reason: Sore Nipples Lactated Ringer's (Ringers, Lactated) 1,000 mls @ 150 mls/hr IV ASDIRECTED NITIN Last Admin: 06/22/16 15:06 Dose: 150 mls/hr Oxytocin/Lactated Ringer's (Pitocin In Lr 30 Units/500 Ml) 30 unit in 500 mls @ 2 mls/hr IV TITRATE NITIN; 2 MUNITS/MIN PRN Reason: Protocol Last Titration: 06/22/16 16:00 Dose: 0 munits/min, 0 mls/hr Ibuprofen (Motrin) 400 mg PO Q4H PRN PRN Reason: Pain Ibuprofen (Motrin) 800 mg PO Q6H PRN PRN Reason: Pain Last Admin: 06/23/16 07:51 Dose: 800 mg Lidocaine HCl (Xylocaine 1%) 50 ml INJECT .ONCE PRN PRN Reason: Laceration repair Methylergonovine Maleate (Methergine) 0.2 mg IM ASDIRECTED PRN PRN Reason: Post Hemorrhage Misoprostol (Cytotec) 200 mcg PO .ONCE PRN PRN Reason: Post Hemorrhage Nalbuphine HCl (Nubain) 10 mg IVPUSH ASDIRECTED PRN PRN Reason: Pain (severe 7-10) Stop: 06/24/16 06:08 Oxycodone HCl (Oxycodone) 5 mg PO Q2H PRN PRN Reason: Pain Sodium Chloride (Saline Flush) 10 ml FLUSH ASDIRECTED PRN PRN Reason: Keep Vein Open Sodium Chloride (Saline Flush) 2.5 ml FLUSH ASDIRECTED PRN PRN Reason: Keep Vein Open Sterile Water (Sterile Water For Irrigation) 1,000 ml IRR ASDIRECTED PRN PRN Reason: delivery Terbutaline Sulfate (Brethine) 0.25 mg SUBCUT ASDIRECTED PRN PRN Reason: Tacysystole Witch Avril (Tucks) 1 pad TOP ASDIRECTED PRN PRN Reason: comfort care Last Admin: 06/23/16 07:51 Dose: 1 tub Discontinued Medications Bupivacaine HCl (Sensorcaine-Mpf 0.5%) Confirm Administered Dose 10 ml .ROUTE .STK-MED ONE Stop: 06/22/16 15:22 Fentanyl (Sublimaze) Confirm Administered Dose 300 mcg .ROUTE .STK-MED ONE Stop: 06/22/16 14:25 Oxytocin/Lactated Ringer's (Pitocin In Lr 30 Units/500 Ml) 30 unit in 500 mls @ 500 mls/hr IV TITRATE NITIN PRN Reason: 500 MUNITS/MIN Stop: 06/22/16 07:14 Ropivacaine (Naropin 0.2%) Confirm Administered Dose 100 mls @ as directed .ROUTE .STK-MED ONE Stop: 06/22/16 14:25 Misoprostol (Cytotec) 25 mcg PO ONETIME ONE Stop: 06/22/16 08:11 Last Admin: 06/22/16 08:21 Dose: 25 mcg Misoprostol (Cytotec) 25 mcg VAG ONETIME ONE Stop: 06/22/16 08:12 Last Admin: 06/22/16 08:22 Dose: 25 mcg Ropivacaine (Naropin 0.2%) Confirm Administered Dose 20 ml .ROUTE .STK-MED ONE Stop: 06/22/16 14:25 - Interaction Disposition, : in Room with Family Infant Interaction: Holding Infant Feeding: Attempted ; Nursed Fair/Poor Support Person: Mother - Recovery Exam Fundal Tone: Firm Fundal Level: At Umbilicus Fundal Placement: Midline Lochia Amount: Small Lochia Color: Rubra/Red Perineum Description: Intact, Minimal Bruising/Swelling Episiotomy/Laceration: None Bladder Status: Voiding Urinary Elimination: Voided - Exam General: alert, oriented HEENT: Pupils equal Neck: supple Lungs: Clear to auscultation, Normal respiratory effort Cardiovascular: Regular Rate, Regular Rhythm Abdomen: bowel sounds present, soft, no tenderness, no distension Extremities: no edema Skin: warm, dry, intact Wound/Incisions: healing well Neurological: no new focal deficit Psy/Mental Status: alert, normal affect, normal mood - Problem List Review Problem List Initiated/Reviewed/Updated: Yes - My Orders Last 24 Hours: My Active Orders 06/22/16 16:18 Patient Status [ADT] Routine May Shower [RC] ASDIRECTED Up ad Vera [RC] ASDIRECTED Acetaminophen [Tylenol Extra Strength] 1,000 mg PO Q4H PRN Acetaminophen [Tylenol Extra Strength] 500 mg PO Q4H PRN Benzocaine/Menthol [Dermoplast Pain Relief 20%-0.5% [place]] 78 gm TOP ASDIRECTED PRN Bisacodyl [Dulcolax] 10 mg RECTAL .ONCE PRN Docusate Sodium [Colace] 100 mg PO BID PRN Ibuprofen [Motrin] 400 mg PO Q4H PRN Ibuprofen [Motrin] 800 mg PO Q6H PRN Lanolin [Lansinoh HPA] See Dose Instructions TOP ASDIRECTED PRN Witch Avril [Tucks] 1 pad TOP ASDIRECTED PRN oxyCODONE 5 mg PO Q2H PRN Assess Lochia [WOMSER] Per Unit Routine Assess Uterine Involution [WOMSER] Per Unit Routine Peripheral IV Discontinue [OM.PC] Routine 06/22/16 Lunch Regular Diet [DIET] - Plan Plan:: Term admitted for induction cervical examination in 2-3 cm 50 vertex and out of the pelvis she is para 1001 the plan is to use side effects and Pitocin for induction.
[2016-06-23] MEDS: Acetaminophen 500 MG Tab PO PRN (12:41)
[2016-06-23 15:37] VITALS: BP 108/58
== END 2016-06-23 18:50 | disposition home or self-care (01) | DRG 775 ==
LOC: MW.OBCHECK 05:57 → MW.OB 05:59 → MW.OBCHECK 06:07 → OBSVTOIN 16:09
PROVIDERS: ADMIT Obstetrics & Gynecology; ATTEND Advanced Practice Midwife
PROC: 10E0XZZ Delivery of Products of Conception, External Approach (ICD-10-PCS; principal; 2016-06-22)
PROC: 10907ZC Drainage of Amniotic Fluid, Therapeutic from Products of Conception, Via Natural or Artificial Opening (ICD-10-PCS; 2016-06-22)
PROC: 3E0P7GC Introduction of Other Therapeutic Substance into Female Reproductive, Via Natural or Artificial Opening (ICD-10-PCS; 2016-06-22)
PROC: 3E033VJ Introduction of Other Hormone into Peripheral Vein, Percutaneous Approach (ICD-10-PCS; 2016-06-22)
DX: O80 Encounter for full-term uncomplicated delivery (principal); Z3A.40 40 weeks gestation of pregnancy; Z37.0 Single live birth
CPT/HCPCS: 01967; 36415; 59025; 85014; 85018; 85027; 85460; 86850; 86900; 86901; A9270-GY; J2790; J2795; J3010; J7120

== ENCOUNTER 2016-07-11 18:35 | Emergency (ER) | payer MEDICAID, OTHER ==
[2016-07-11 18:46] VITALS: BP 120/62
[2016-07-11] MEDS ORDERED: Ibuprofen 600 MG Tab PO ONE (18:52)
--- NOTE | 2016-07-11 19:17 | EDM.PDOC ---
ED HPI Trauma - General Chief Complaint: Upper Extremity Injury/Pain Stated Complaint: POSSIBLE BROKEN RIGHT ARM Time Seen by Provider: 07/11/16 18:40 Source: Reports: Patient History Limitations: Reports: No limitations - History of Present Illness INITIAL COMMENTS - FREE TEXT/NARRATIVE: HISTORY AND PHYSICAL: History of present illness: [] Review of systems: As per history of present illness and below otherwise all systems reviewed and negative. Past medical history: As per history of present illness and as reviewed below otherwise noncontributory. Surgical history: As per history of present illness and as reviewed below otherwise noncontributory. Social history: No reported history of drug or alcohol abuse. Family history: As per history of present illness and as reviewed below otherwise noncontributory. HEENT: Normocephalic, atraumatic, pupils normal and symmetrical, supple neck, no meningismus, normal color Lungs: Normal and symmetrical chest wall excursion bilateral with no tachypnea or increased work of breathing, grossly normal chest exam Heart: No tachycardia in triage Abdomen: Normal-appearing, nondistended, no visible mass or asymmetry Pelvis: Normal-appearing Genitourinary: Deferred Rectal exam: Deferred Extremities: Atraumatic, normal use and range of motion, no visible evidence of gross neurovascular compromise . Soft tissue swelling ulnar aspect of distal right forearm. tenderness , no deformity. Normal range of motion of wrist mildly limited by discomfort.neurovascularly intact distally. Nontender proximal forearm elbow. Soft compartments Neuro: Awake, alert, oriented. Normal and appropriate mental status. Cranial nerves grossly unremarkable. Motor function normal. Nonfocal neurologic exam. Diagnostics: [X-ray right forearm and wrist] Therapeutics: [Profen by mouth] Impression: [] Plan: [Signs and symptoms consistent with contusion and mild hematoma versus nondisplaced fracture ulnar aspect distal right forearm. No significant deformity. Patient initially had good range of motion however when swelling evolved it became limited by discomfort. Injury was yesterday. X-ray pending. X-ray interpreted by me with nondisplaced fracture transverse distal one third ulna no angulation. Splint applied by nurse and ALANA maria [facility] REBECA neurovascularly intact status post application. Patient given sling. She is aware to remove the sling and range of motion her shoulder multiple times a day. Followup with PCP and with orthopedics clinic with Dr. Carmen Ballard. Patient aware to take ibuprofen and Tylenol as needed for pain Definitive disposition and diagnosis as appropriate pending reevaluation and review of above. Allergies/ADRs: Allergies sulfamethoxazole [From Bactrim] Allergy (Verified 07/11/16 18:41) Rash trimethoprim [From Bactrim] Allergy (Verified 07/11/16 18:41) Rash Home Medications: Ambulatory Orders Phenytoin [Dilantin] 30 mg PO DAILY 07/11/16 [Confirmed 07/11/16] Past Medical History Other HEENT History: tonsilectomy Cardiovascular History: Reports: None, Other (see below) Other Cardiovascular History: gestational hypertension previous . Infrequent hypertension during this . Respiratory History: Reports: None Gastrointestinal History: Reports: Chronic diarrhea Other Gastrointestinal History: Pt states is resolved. Was from a medication. 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 "cyst on ovaries". reports that ovarian cysts resolved Other Musculoskeletal History: history of ankle surgery left Neurological History: Reports: Seizure, Other (see below) Other Neuro History: states seizures episodes related to "low sodium", never been investigated. seizures have been since last Psychiatric History: Reports: None Hematologic History: Reports: None Immunologic History: Reports: None Oncologic (Cancer) History: Reports: None Dermatologic History: Reports: Other (see below) Other Dermatologic History: rash - Past Surgical History HEENT Surgical History: Reports: Adenoidectomy, Tonsillectomy Social & Family History - Family History Family Medical History: Noncontributory Cardiac: Reports: Other (see below) Other Cardiac Family History: "heart disease" Endocrine/Metabolic: Reports: Diabetes, type I, Diabetes, type II - Tobacco Use Smoking Status *Q: Never Smoker Second Hand Smoke Exposure: No - Caffeine Use Caffeine Use: Reports: None - Recreational Drug Use Recreational Drug Use: No Drug Use in Last 12 Months: No Recreational Drug Type: Reports: Heroin, Marijuana/Hashish Recreational Drug Use Frequency: Not Used In Over 1 Year Review of Systems - Review of Systems Review Of Systems: See Below (per history of present illness) Trauma Exam - Physical Exam Exam: See Below (Per history of present illness) Course - Vital Signs Last Recorded V/S: Last Vital Signs Temp 36.1 C 07/11/16 18:45 Pulse 101 H 07/11/16 18:45 Resp 18 07/11/16 18:45 BP 120/62 07/11/16 18:45 Pulse Ox 97 07/11/16 18:45 - Orders/Labs/Meds Orders: Active Orders 24 hr Category Date Time Status Forearm 2V Rt [CR] Stat Exams 07/11/16 18:52 Taken Wrist Comp Min 3V Rt [CR] Stat Exams 07/11/16 18:49 Taken Meds: Medications Discontinued Medications Generic Name Dose Route Start Last Admin Trade Name [place] PRN Reason Stop Dose Admin Ibuprofen 600 mg 07/11/16 18:52 Motrin PO 07/11/16 18:53 ONETIME ONE Departure - Departure Time of Disposition: 19:33 Disposition: Home, Self-Care 01 Condition: good Clinical Impression: Right distal ulnar fracture, Right forearm pain Referrals: PCP,None [Primary Care Provider] - Forms: ED Department Discharge Additional Instructions: As discussed, you have a nondisplaced fracture towards the end of your ulna. Rest ice elevate and wear splint until otherwise directed by orthopedics. Followup with Dr. Carmen Ballard the orthopedic DrMadai in several days for reevaluation and application of cast for definitive fracture care . use ibuprofen and Tylenol as needed for pain - My Orders Last 24 Hours: My Active Orders 07/11/16 18:49 Wrist Comp Min 3V Rt [CR] Stat 07/11/16 18:52 Forearm 2V Rt [CR] Stat - Assessment/Plan Last 24 Hours: My Active Orders 07/11/16 18:49 Wrist Comp Min 3V Rt [CR] Stat 07/11/16 18:52 Forearm 2V Rt [CR] Stat
--- NOTE | 2016-07-12 15:18 | CR ---
EXAM DATE: 07/11/16 PATIENT'S AGE: 20 Patient: REGGIE ADAM Facility: [place], [place] Site . Site : 1995 Study: XRay Extremity Right [id number]/1/2017 7:23:45 PM Ordering Physician: Lalito Atkinson Final Report: INDICATION: Wrist pain from a fall TECHNIQUE: Wrist radiograph 3 views right COMPARISON: None FINDINGS: Bones: There is a transverse nondisplaced fracture in the distal ulnar diaphysis. Joint spaces: The radiocarpal, carpal, and carpometacarpal joints are unremarkable in appearance. Soft tissues: Soft tissue swelling over the ulnar fracture site noted. No radiopaque foreign bodies are noted. IMPRESSION: 1. There is a transverse nondisplaced fracture in the distal ulnar diaphysis. Dictated by Sukhdeep Badillo MD @ 07/11/2016 7:47:08 PM Dictated by: Sukhdeep Badillo MD @ 07/11/2016 19:47:13 (Electronic Signature) Report Signed by Proxy. [facility] HOSPITALDemarco
--- NOTE | 2016-07-12 15:19 | CR ---
EXAM DATE: 07/11/16 PATIENT'S AGE: 20 Patient: REGGIE ADAM Facility: [place], [place] Site . Site : 1995 Study: XRay Extremity Right [id number]/1/2017 7:24:47 PM Ordering Physician: Lalito Atkinson Final Report: INDICATION: Forearm pain from a fall TECHNIQUE: Forearm radiograph 2 views right COMPARISON: None FINDINGS: Bones: Alignment is normal. There is a transverse nondisplaced fracture in the distal ulnar diaphysis. Joint spaces: The visualized radiocarpal and elbow joints are unremarkable. The elbow joint is not profiled and if there is pain or tenderness in this region, dedicated views of the elbow are recommended. Soft tissues: Soft tissue swelling over the ulnar fracture site is seen. No radiopaque foreign bodies are noted. IMPRESSION: 1. There is a transverse nondisplaced fracture in the distal ulnar diaphysis. Dictated by Sukhdeep Badillo MD @ 07/11/2016 7:47:59 PM Dictated by: Sukhdeep Badillo MD @ 07/11/2016 19:48:04 (Electronic Signature) Report Signed by Proxy. AJAY
== END 2016-07-11 19:54 | disposition home or self-care (01) ==
LOC: MW.ED 18:35
DX: S52.601A Unspecified fracture of lower end of right ulna, initial encounter for closed fracture (principal); Z88.2 Allergy status to sulfonamides; Z98.890 Other specified postprocedural states; W18.09XA Striking against other object with subsequent fall, initial encounter
CPT/HCPCS: 29125; 73090; 73110; 99282; A4566

== ENCOUNTER 2017-05-01 04:08 | Inpatient (IN) | payer SELFPAY ==
[2017-05-01] MEDS ORDERED: Butorphanol 1 MG/ML SDV IVPUSH PRN (04:40)
[2017-05-01] MEDS ORDERED: Sodium Chloride 0.9% 10 ML Syringe FLUSH PRN (04:40)
[2017-05-01] MEDS ORDERED: Lidocaine 1% 50 ML MDV INJECT PRN (04:40)
[2017-05-01] MEDS ORDERED: Sodium Chloride 0.9% 2.5 ML Syringe FLUSH PRN (04:40)
[2017-05-01] MEDS ORDERED: Carboprost Tromethamine 250 MCG/1 ML Amp IM PRN (04:40)
[2017-05-01] MEDS ORDERED: Water For Irrigation,Sterile 1,000 ML Container IRR PRN (04:40)
[2017-05-01] MEDS ORDERED: Misoprostol 200 MCG Tab PO PRN (04:40)
[2017-05-01] MEDS ORDERED: Methylergonovine 0.2 MG/1 ML Amp IM PRN (04:40)
[2017-05-01] MEDS ORDERED: Tranexamic Acid 1,000 MG in Sodium Chloride 0.9% 100 ML IV PRN (04:40)
[2017-05-01] MEDS ORDERED: Nalbuphine 10 MG/1 ML Vial IVPUSH PRN ×2 (04:40→07:43)
[2017-05-01] MEDS ORDERED: Lactated Ringers 1,000 ML IV SCH ×2 (04:45→07:45)
--- NOTE | 2017-05-01 05:06 | PCM.LDHP ---
L&D History of Present Illness - General Date of Service: 05/01/17 Admit Problem/Dx: Patient Status Order with Admit Dx/Problem 05/01/17 04:41 Patient Status [ADT] Routine Admission Diagnosis/Problem Admission Diagnosis/Problem 05/01/17 05:00 21 yo EDC 05/09/2017 38 6/7wks comes today due to mary bleeding in 3rd trimester, O-, R-NI, GBS neg. Source of Information: Patient History Limitations: Reports: No Limitations - History of Present Illness Improves with: Reports: None Worsens with: Reports: None Associated Symptoms: Reports: N - Related Data Allergies/Adverse Reactions: Allergies Allergy/AdvReac Type Severity Reaction Status Date / Time sulfamethoxazole Allergy Rash Verified 07/11/16 18:41 [From Bactrim] trimethoprim [From Bactrim] Allergy Rash Verified 07/11/16 18:41 Home Medications: Home Meds Phenytoin [Dilantin] 30 mg PO DAILY 07/11/16 [History] Past Medical History Other HEENT History: tonsilectomy Cardiovascular History: Reports: None, Other (See Below) Other Cardiovascular History: gestational hypertension previous . Infrequent hypertension during this . Respiratory History: Reports: None Gastrointestinal History: Reports: Chronic Diarrhea Other Gastrointestinal History: Pt states is resolved. Was from a medication. 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 "cyst on ovaries". reports that ovarian cysts resolved Other Musculoskeletal History: history of ankle surgery left Neurological History: Reports: Seizure, Other (See Below) Other Neuro History: states seizures episodes related to "low sodium", never been investigated. seizures have been since last Psychiatric History: Reports: None Hematologic History: Reports: None Immunologic History: Reports: None Oncologic (Cancer) History: Reports: None Dermatologic History: Reports: Other (See Below) Other Dermatologic History: rash - Past Surgical History HEENT Surgical History: Reports: Adenoidectomy, Tonsillectomy Social & Family History - Family History Family Medical History: Noncontributory Cardiac: Reports: Other (See Below) Other Cardiac Family History: "heart disease" Endocrine/Metabolic: Reports: Diabetes, Type I, Diabetes, type II - Tobacco Use Smoking Status *Q: Never Smoker Second Hand Smoke Exposure: No - Caffeine Use Caffeine Use: Reports: None - Recreational Drug Use Recreational Drug Use: No Drug Use in Last 12 Months: No Recreational Drug Type: Reports: Heroin, Marijuana/Hashish Recreational Drug Use Frequency: Not Used In Over 1 Year H&P Review of Systems - Review of Systems: Review Of Systems: See Below General: Reports: No Symptoms HEENT: Reports: No Symptoms Pulmonary: Reports: No Symptoms Cardiovascular: Reports: No Symptoms Gastrointestinal: Reports: No Symptoms Genitourinary: Reports: No Symptoms Musculoskeletal: Reports: No Symptoms Skin: Reports: No Symptoms Psychiatric: Reports: No Symptoms Neurological: Reports: No Symptoms Hematologic/Lymphatic: Reports: No Symptoms Immunologic: Reports: No Symptoms L&D Exam - Exam Exam: See Below - Vital Signs Weight: 98.883 kg - Exam General: Alert, Oriented, Cooperative HEENT: Hearing Intact Lungs: Normal Respiratory Effort Rectal Exam: Deferred Genitourinary: Vaginal bleeding Back Exam: Full Range of Motion Extremities: Normal Range of Motion, Non-Tender, No Pedal Edema, Normal Capillary Refill Skin: Warm, Dry, Intact Neurological: Reflexes Equal Bilateral, Normal Speech, Normal Tone Psychiatric: Alert, Normal Affect, Normal Mood - Patient Data Lab Results Last 24 hrs: Laboratory Results - last 24 hr 05/01/17 Range/Units 04:49 WBC 9.35 (4.0-11.0) K/uL RBC 4.74 (4.30-5.90) M/uL Hgb 13.4 (12.0-16.0) g/dL Hct 39.3 (36.0-46.0) % MCV 82.9 (80.0-98.0) fL MCH 28.3 (27.0-32.0) pg MCHC 34.1 (31.0-37.0) g/dL RDW Std Deviation 39.9 (28.0-62.0) fl RDW Coeff of Evon 13 (11.0-15.0) % Plt Count 166 (150-400) K/uL MPV 11.20 (7.40-12.00) fL Nucleated RBC % 0.0 /100WBC Nucleated RBCs # 0 K/uL Result Diagrams: 05/01/17 04:49 - Problem List (1) Supervision of normal IUP (intrauterine ) in multigravida SNOMED Code(s): 967040299, 756381219 ICD Code: Z34.80 - ENCOUNTER FOR SUPRVSN OF NORMAL , UNSP TRIMESTER Status: Acute Current Visit: Yes Qualifiers: Trimester: third trimester Qualified Code(s): Z34.83 - Encounter for supervision of other normal , third trimester (2) Third trimester bleeding SNOMED Code(s): 905800489 ICD Code: O46.93 - ANTEPARTUM HEMORRHAGE, UNSPECIFIED, THIRD TRIMESTER Status: Acute Priority: High Current Visit: Yes Problem List Initiated/Reviewed/Updated: Yes Orders Last 24hrs: Active Orders 24 hr Category Date Time Status Patient Status [ADT] Routine ADT 05/01/17 04:41 Active Heart Tones [RC] CONTINUOUS Care 05/01/17 04:41 Active Non Stress Test [RC] PER UNIT ROUTINE Care 05/01/17 04:41 Active May Shower [RC] ASDIRECTED Care 05/01/17 04:41 Active Notify Provider [RC] PRN Care 05/01/17 04:41 Active Up ad Vera [RC] ASDIRECTED Care 05/01/17 04:41 Active Vaginal Exam [RC] PRN Care 05/01/17 04:41 Active Vital Signs [RC] PER UNIT ROUTINE Care 05/01/17 04:41 Active TYPE AND SCREEN [BBK] Routine Lab 05/01/17 04:49 Received Butorphanol [Stadol] Med 05/01/17 04:40 Active 1 mg IVPUSH Q1H PRN Carboprost Tromethamine [Hemabate DS] Med 05/01/17 04:40 Active 250 mcg IM ASDIRECTED PRN Lactated Ringers [Ringers, Lactated] 1,000 ml Med 05/01/17 04:45 Active IV ASDIRECTED Lidocaine 1% [Xylocaine 1%] Med 05/01/17 04:40 Active 50 ml INJECT .ONCE PRN Methylergonovine [Methergine] Med 05/01/17 04:40 Active 0.2 mg IM ASDIRECTED PRN Misoprostol [Cytotec] Med 05/01/17 04:40 Active 200 mcg PO .ONCE PRN Nalbuphine [Nubain] Med 05/01/17 04:40 Active 10 mg IVPUSH Q1H PRN Sodium Chloride 0.9% [Saline Flush] Med 05/01/17 04:40 Active 10 ml FLUSH ASDIRECTED PRN Sodium Chloride 0.9% [Saline Flush] Med 05/01/17 04:40 Active 2.5 ml FLUSH ASDIRECTED PRN Tranexamic Acid [Cyklokapron] 1,000 mg Med 05/01/17 04:40 Active Sodium Chloride 0.9% [Normal Saline] 100 ml IV ONETIME Water For Irrigation,Sterile [Sterile Water for Med 05/01/17 04:40 Active Irrigation] 1,000 ml IRR ASDIRECTED PRN Scalp Electrode [WOMSER] Per Unit Routine Oth 05/01/17 04:41 Ordered Peripheral IV Insertion Adult [OM.PC] Routine Oth 05/01/17 04:41 Ordered Resuscitation Status Routine Resus Stat 05/01/17 04:40 Ordered Medication Orders Butorphanol Tartrate (Stadol) 1 mg IVPUSH Q1H PRN PRN Reason: Pain Carboprost Tromethamine (Hemabate Ds) 250 mcg IM ASDIRECTED PRN PRN Reason: Post Hemorrhage Lactated Ringer's (Ringers, Lactated) 1,000 mls @ 150 mls/hr IV ASDIRECTED NITIN Tranexamic Acid 1,000 mg/ (Sodium Chloride) 110 mls @ 600 mls/hr IV ONETIME PRN PRN Reason: Bleeding Lidocaine HCl (Xylocaine 1%) 50 ml INJECT .ONCE PRN PRN Reason: Laceration repair Methylergonovine Maleate (Methergine) 0.2 mg IM ASDIRECTED PRN PRN Reason: Post Hemorrhage Misoprostol (Cytotec) 200 mcg PO .ONCE PRN PRN Reason: Post Hemorrhage Nalbuphine HCl (Nubain) 10 mg IVPUSH Q1H PRN PRN Reason: Pain (severe 7-10) Sodium Chloride (Saline Flush) 10 ml FLUSH ASDIRECTED PRN PRN Reason: Keep Vein Open Sodium Chloride (Saline Flush) 2.5 ml FLUSH ASDIRECTED PRN PRN Reason: Keep Vein Open Sterile Water (Sterile Water For Irrigation) 1,000 ml IRR ASDIRECTED PRN PRN Reason: delivery Assessment/Plan Comment:: A: 21 yo EDC 05/09/2017 38 6/7wks comes today due to mary bleeding in 3rd trimester, O-, R-NI, GBS neg. P: admit, ultrasound for placenta placement, labs, Will call Dr Calderon if continues bleeding.
--- NOTE | 2017-05-01 06:04 | PCM.PN ---
- General Info Date of Service: 05/01/17 Admission Dx/Problem (Free Text): Patient Status Order with Admit Dx/Problem 05/01/17 04:41 Patient Status [ADT] Routine Admission Diagnosis/Problem Admission Diagnosis/Problem 05/01/17 05:00 21 yo EDC 05/09/2017 38 6/7wks comes today due to mary bleeding in 3rd trimester, O-, R-NI, GBS neg. Functional Status: Reports: Pain Controlled, Urinating - Review of Systems General: Reports: No Symptoms HEENT: Reports: No Symptoms Pulmonary: Reports: No Symptoms Cardiovascular: Reports: No Symptoms Gastrointestinal: Reports: No Symptoms Genitourinary: Reports: No Symptoms Musculoskeletal: Reports: No Symptoms Skin: Reports: No Symptoms Neurological: Reports: No Symptoms Psychiatric: Reports: No Symptoms - Patient Data Weight - Most Recent: 98.883 kg Lab Results Last 24 Hours: Laboratory Results - last 24 hr 05/01/17 05/01/17 Range/Units 04:49 04:49 WBC 9.35 (4.0-11.0) K/uL RBC 4.74 (4.30-5.90) M/uL Hgb 13.4 (12.0-16.0) g/dL Hct 39.3 (36.0-46.0) % MCV 82.9 (80.0-98.0) fL MCH 28.3 (27.0-32.0) pg MCHC 34.1 (31.0-37.0) g/dL RDW Std Deviation 39.9 (28.0-62.0) fl RDW Coeff of Evno 13 (11.0-15.0) % Plt Count 166 (150-400) K/uL MPV 11.20 (7.40-12.00) fL Nucleated RBC % 0.0 /100WBC Nucleated RBCs # 0 K/uL Blood Type O NEGATIVE Antibody Screen NEGATIVE Med Orders - Current: Current Medications Butorphanol Tartrate (Stadol) 1 mg IVPUSH Q1H PRN PRN Reason: Pain Carboprost Tromethamine (Hemabate Ds) 250 mcg IM ASDIRECTED PRN PRN Reason: Post Hemorrhage Lactated Ringer's (Ringers, Lactated) 1,000 mls @ 150 mls/hr IV ASDIRECTED NITIN Tranexamic Acid 1,000 mg/ (Sodium Chloride) 110 mls @ 600 mls/hr IV ONETIME PRN PRN Reason: Bleeding Lidocaine HCl (Xylocaine 1%) 50 ml INJECT .ONCE PRN PRN Reason: Laceration repair Methylergonovine Maleate (Methergine) 0.2 mg IM ASDIRECTED PRN PRN Reason: Post Hemorrhage Misoprostol (Cytotec) 200 mcg PO .ONCE PRN PRN Reason: Post Hemorrhage Nalbuphine HCl (Nubain) 10 mg IVPUSH Q1H PRN PRN Reason: Pain (severe 7-10) Sodium Chloride (Saline Flush) 10 ml FLUSH ASDIRECTED PRN PRN Reason: Keep Vein Open Sodium Chloride (Saline Flush) 2.5 ml FLUSH ASDIRECTED PRN PRN Reason: Keep Vein Open Sterile Water (Sterile Water For Irrigation) 1,000 ml IRR ASDIRECTED PRN PRN Reason: delivery - Exam General: Alert, Oriented, Cooperative, No Acute Distress Lungs: Normal Respiratory Effort (Female) Exam: Normal External Exam, Normal Speculum Exam, Vaginal Bleeding ( no active bleeding noted per Dr Calderon's spec exam. ) Extremities: Normal Range of Motion, Non-Tender, No Pedal Edema, Normal Capillary Refill Skin: Warm, Dry, Intact Neurological: No New Focal Deficit, Normal Speech, Normal Tone Psy/Mental Status: Alert, Normal Affect, Normal Mood - Problem List & Annotations (1) Supervision of normal IUP (intrauterine ) in multigravida SNOMED Code(s): 090135385, 981609908 Code(s): Z34.80 - ENCOUNTER FOR SUPRVSN OF NORMAL , UNSP TRIMESTER Status: Acute Current Visit: Yes Qualifiers: Trimester: third trimester Qualified Code(s): Z34.83 - Encounter for supervision of other normal , third trimester (2) Third trimester bleeding SNOMED Code(s): 007967466 Code(s): O46.93 - ANTEPARTUM HEMORRHAGE, UNSPECIFIED, THIRD TRIMESTER Status: Acute Priority: High Current Visit: Yes - Problem List Review Problem List Initiated/Reviewed/Updated: Yes - My Orders Last 24 Hours: My Active Orders 05/01/17 04:40 Butorphanol [Stadol] 1 mg IVPUSH Q1H PRN Carboprost Tromethamine [Hemabate DS] 250 mcg IM ASDIRECTED PRN Lidocaine 1% [Xylocaine 1%] 50 ml INJECT .ONCE PRN Methylergonovine [Methergine] 0.2 mg IM ASDIRECTED PRN Misoprostol [Cytotec] 200 mcg PO .ONCE PRN Nalbuphine [Nubain] 10 mg IVPUSH Q1H PRN Sodium Chloride 0.9% [Saline Flush] 10 ml FLUSH ASDIRECTED PRN Sodium Chloride 0.9% [Saline Flush] 2.5 ml FLUSH ASDIRECTED PRN Tranexamic Acid [Cyklokapron] 1,000 mg Sodium Chloride 0.9% [Normal Saline] 100 ml IV ONETIME Water For Irrigation,Sterile [Sterile Water for Irrigation] 1,000 ml IRR ASDIRECTED PRN Resuscitation Status Routine 05/01/17 04:41 Patient Status [ADT] Routine Heart Tones [RC] CONTINUOUS Non Stress Test [RC] PER UNIT ROUTINE May Shower [RC] ASDIRECTED Notify Provider [RC] PRN Up ad Vera [RC] ASDIRECTED Vaginal Exam [RC] PRN Vital Signs [RC] PER UNIT ROUTINE Scalp Electrode [WOMSER] Per Unit Routine Peripheral IV Insertion Adult [OM.PC] Routine 05/01/17 04:45 Lactated Ringers [Ringers, Lactated] 1,000 ml IV ASDIRECTED 05/01/17 05:01 OB Transvaginal [US] Routine - Plan Plan:: A: 21 yo EDC 05/09/2017 38 6/7wks comes today due to mary bleeding in 3rd trimester, O-, R-NI, GBS neg. P: admit, ultrasound for placenta placement, labs, Will call Dr Calderon if continues bleeding. A: No active bleeding at this time. VSS, AF, Cat I tracing, Ctx q5min palp mod. P: continue to monitor and observe. Dr Calderon in L&D and has examined the pt.
[2017-05-01] MEDS ORDERED: Midazolam 1 MG/ML 2 ML SDV ONE (06:54)
[2017-05-01] MEDS ORDERED: Propofol 200 MG/20 ML SDV ONE ×2 (06:54→07:30)
[2017-05-01] MEDS ORDERED: fentaNYL 250 MCG/5 ML SDV ONE (06:55)
[2017-05-01] MEDS ORDERED: Morphine PF 1 MG/ML Amp ONE (06:55)
[2017-05-01] MEDS ORDERED: Oxytocin 10 Units/1 ML SDV ONE ×2 (06:56→06:57)
[2017-05-01] MEDS ORDERED: Succinylcholine/Normal Saline 200 MG/10 ML Syringe ONE (07:01)
[2017-05-01] MEDS ORDERED: Ondansetron 4 MG/2 ML SDV ONE (07:03)
[2017-05-01] MEDS ORDERED: Octyl 2-Cyanoacrylate 1 Tube ONE (07:11)
[2017-05-01] MEDS ORDERED: ePHEDrine 50 MG/ML SDV ONE (07:16)
[2017-05-01] MEDS ORDERED: Glycopyrrolate 0.2 MG/ML SDV ONE ×2 (07:23→07:49)
[2017-05-01] MEDS ORDERED: Naloxone 0.4 MG/ML Syringe IVPUSH PRN (07:43)
[2017-05-01] MEDS ORDERED: fentaNYL 100 MCG/2 ML SDV IVPUSH PRN (07:43)
[2017-05-01] MEDS ORDERED: diphenhydrAMINE 50 MG/ML SDV IVPUSH PRN ×2 (07:43→07:44)
[2017-05-01] MEDS ORDERED: Bisacodyl 10 MG Supp RECTAL PRN (07:44)
[2017-05-01] MEDS ORDERED: Lanolin 100% Cream 7 GM Tube TOP PRN (07:44)
[2017-05-01] MEDS ORDERED: Ondansetron 4 MG/2 ML SDV IV PRN (07:44)
--- NOTE | 2017-05-01 07:44 | PCM.OPNOTE ---
- General Post-Op/Procedure Note Date of Surgery/Procedure: 05/01/17 Operative Procedure(s): Emergency C/section. Pre Op Diagnosis: IUP 38+ weks placental abroption Post-Op Diagnosis: Same Anesthesia Technique: Spinal Primary Surgeon: Dave Calderon School Psychologist: Kristen Cabrera EBL in mLs: 900 Complications: None Condition: Good
[2017-05-01] MEDS: Ketorolac 30 MG/ML SDV IVPUSH SCH ×3 (08:10→19:43)
--- NOTE | 2017-05-01 08:48 | PCM.POSTAN ---
POST ANESTHESIA ASSESSMENT - MENTAL STATUS Mental Status: Alert, Oriented - RESPIRATORY Respiratory Status: Respiratory Rate WNL, Airway Patent, O2 Saturation Stable - CARDIOVASCULAR CV Status: Pulse Rate WNL, Blood Pressure Stable - GASTROINTESTINAL GI Status: No Symptoms - POST OP HYDRATION Hydration Status: Adequate & Stable
--- NOTE | 2017-05-01 12:44 | OR ---
SURGEON: Dave Calderon MD DATE OF PROCEDURE: PREOPERATIVE DIAGNOSES: 1. Intrauterine , 38+ weeks. 2. Vaginal bleeding due to placental abruption. POSTOPERATIVE DIAGNOSES: 1. Intrauterine , 38+ weeks. 2. Vaginal bleeding due to placental abruption. OPERATION PERFORMED: Primary low-transverse section. GRANTS OFFICER: Kristen Cabrera CNM ANESTHESIA: Spinal, Adal Dunen. ESTIMATED BLOOD LOSS: 900 mL. COMPLICATIONS: None. FINDING: A male fetus. score and weight were not available at this time. The rear load truck driver is Dr. Jose M Ann was present at the time of the section. It was noted when the placenta is delivered, there is at least 15% to 20% abruption was noted. INDICATION FOR SURGERY: This patient is 21. She have two previous children Vaginally . She is followed in our practice primarily by the tube cleaner; however, the patient was noncompliant and with all her appointment, she presented to Labor and Delivery with severe vaginal bleeding and cramping. She had an ultrasound at 20 weeks, which shows low-marginal placenta previa. However, she had a repeat ultrasound in March, which shows that the placenta was moved away and it is no longer previa. On the spot, we did repeated ultrasound in Labor and delivery, which shows that the patient does not have a placenta previa; however, the placenta is posterior, could not rule out abruption at this time. I did a speculum exam at the time of the examination, she was not bleeding. We elected to observe the patient since the heart rate and her vital sign was stable. However, the patient is having another episode of bleeding, probably most likely due to abruption, and decision was made to do a primary low-transverse section. PROCEDURE IN DETAIL: The patient was brought to the OR, properly identified. After adequate level of spinal anesthesia, the patient was prepped and draped in sterile fashion as usual. Low-transverse Pfannenstiel skin incision was done. Shakira fascia and rectus fascia were opened in the direction of the incision. The 2 recti muscles were and peritoneal cavity was entered. A low-transverse uterine incision was done and extended manually with the hand. Fetus was delivered and it cried immediately, handed to Dr. Ann, who is present at the time of the delivery for resuscitation. score and the weight were not available at this time. The placenta was delivered without any problem and after delivering the placenta, inspection of the placenta shows possibility of 15% to 20% marginal abruption. The placenta was sent for histopathology. Then, after that, the repair of the lower uterine segment was done with 2-0 Vicryl continuous interlocking in 2 layers, and then the peritoneal cavity evacuated completely from blood and blood clot and closed with 3-0 Vicryl continuous. The rectus fascia was closed with #1 PDS double strand continuous, Shakira's fascia with 3-0 Vicryl continuous, and the skin closed with 3-0 on a Pablo needle in subcuticular fashion and Dermabond. Instrument and sponge count were correct. The patient tolerated the procedure well and went to recovery room in stable general condition. PATRICIA / WILLIS /[id number] MTDD
[2017-05-01] MEDS: Docusate Sodium 100 MG Cap PO SCH ×2 (13:58→21:31)
--- NOTE | 2017-05-01 19:05 | US ---
EXAM DATE: 05/01/17 PATIENT'S AGE: 21 Patient: REGGIE ADAM Facility: [place], [place] Site . Site : [id number] Study: OB Pelvis [id number]/[id number] 5:32:03 AM Ordering Physician: Yumiko Acosta Final Report: INDICATION: Vaginal bleeding, placental evaluation TECHNIQUE: Ultrasound limited OB pelvis endovaginal. Real-time donnelly-scale and color Doppler imaging of the cervix was performed. COMPARISON: None FINDINGS: The cervix measures 2.9 cm in length with no evidence of funneling. No placenta previa or vasa previa seen on color Doppler images of the internal os. IMPRESSION: 1. No placenta previa or vasa previa seen on color Doppler images of the internal os. Dictated by Sukhdeep Badillo MD @ 05/01/2017 5:34:25 AM Dictated by: Sukhdeep Badillo MD @ 05/01/2017 05:34:32 (Electronic Signature) Report Signed by Proxy. AJAY
[2017-05-02] MEDS: Ketorolac 30 MG/ML SDV IVPUSH SCH ×2 (01:17→07:31)
--- NOTE | 2017-05-02 07:02 | PCM48HPAN ---
Post Anesthesia Note - EVALUATION WITHIN 48HRS OF ANESTHETIC Vital Signs in Normal Range: Yes Patient Participated in Evaluation: Yes Respiratory Function Stable: Yes Airway Patent: Yes Cardiovascular Function Stable: Yes Hydration Status Stable: Yes Pain Control Satisfactory: Yes Nausea and Vomiting Control Satisfactory: Yes Mental Status Recovered: Yes Resp Rate: 16
[2017-05-02] MEDS: Docusate Sodium 100 MG Cap PO SCH ×3 (07:31→20:59)
--- NOTE | 2017-05-02 09:00 | PCM.SURGPN ---
- General Info Date of Service: 05/02/17 Functional Status: Reports: Pain Controlled - Review of Systems General: Reports: No Symptoms HEENT: Reports: No Symptoms Pulmonary: Reports: No Symptoms Cardiovascular: Reports: No Symptoms Gastrointestinal: Reports: No Symptoms Genitourinary: Reports: No Symptoms Musculoskeletal: Reports: No Symptoms Skin: Reports: No Symptoms Neurological: Reports: No Symptoms Psychiatric: Reports: No Symptoms - Patient Data Vitals - Most Recent: Last Vital Signs Temp 36.2 C 05/02/17 08:00 Pulse 70 05/02/17 08:00 Resp 18 05/02/17 08:00 BP 109/56 L 05/02/17 08:00 Pulse Ox 97 05/02/17 08:00 Weight - Most Recent: 98.883 kg I&O - Last 24 Hours: Intake & Output 05/01/17 05/02/17 05/02/17 22:59 06:59 14:59 Intake Total 917 1200 Output Total 2250 Balance 917 -1050 Lab Results Last 24 Hrs: Laboratory Results - last 24 hr 05/02/17 Range/Units 04:59 Hgb 10.9 L (12.0-16.0) g/dL Hct 32.6 L (36.0-46.0) % Med Orders - Current: Current Medications Bisacodyl (Dulcolax) 10 mg RECTAL .ONCE PRN PRN Reason: Constipation Butorphanol Tartrate (Stadol) 1 mg IVPUSH Q1H PRN PRN Reason: Pain Carboprost Tromethamine (Hemabate Ds) 250 mcg IM ASDIRECTED PRN PRN Reason: Post Hemorrhage Diphenhydramine HCl (Benadryl) 25 mg IVPUSH Q6H PRN PRN Reason: Itching or Nausea Docusate Sodium (Colace) 100 mg PO BID [facility] Last Admin: 05/02/17 08:46 Dose: Not Given Emollient Ointment (Lansinoh Hpa) 0 gm TOP ASDIRECTED PRN PRN Reason: Sore Nipples Lactated Ringer's (Ringers, Lactated) 1,000 mls @ 150 mls/hr IV ASDIRECTED [facility] Last Admin: 05/01/17 06:00 Dose: 150 mls/hr Tranexamic Acid 1,000 mg/ (Sodium Chloride) 110 mls @ 600 mls/hr IV ONETIME PRN PRN Reason: Bleeding Lactated Ringer's (Ringers, Lactated) 1,000 mls @ 125 mls/hr IV ASDIRECTED NITIN Ibuprofen (Motrin) 800 mg PO Q8H PRN PRN Reason: mild pain or fever Lidocaine HCl (Xylocaine 1%) 50 ml INJECT .ONCE PRN PRN Reason: Laceration repair Methylergonovine Maleate (Methergine) 0.2 mg IM ASDIRECTED PRN PRN Reason: Post Hemorrhage Misoprostol (Cytotec) 200 mcg PO .ONCE PRN PRN Reason: Post Hemorrhage Nalbuphine HCl (Nubain) 10 mg IVPUSH Q1H PRN PRN Reason: Pain (severe 7-10) Ondansetron HCl (Zofran) 4 mg IV Q4H PRN PRN Reason: Nausea/Vomiting Oxycodone/Acetaminophen (Percocet 325-5 Mg) 1 tab PO Q4H PRN PRN Reason: Pain (moderate 4-6) Oxycodone/Acetaminophen (Percocet 325-5 Mg) 2 tab PO Q4H PRN PRN Reason: Pain (moderate 4-6) Sodium Chloride (Saline Flush) 10 ml FLUSH ASDIRECTED PRN PRN Reason: Keep Vein Open Sodium Chloride (Saline Flush) 2.5 ml FLUSH ASDIRECTED PRN PRN Reason: Keep Vein Open Sterile Water (Sterile Water For Irrigation) 1,000 ml IRR ASDIRECTED PRN PRN Reason: delivery Discontinued Medications Diphenhydramine HCl (Benadryl) 25 mg IVPUSH Q4H PRN PRN Reason: Itching Stop: 05/02/17 07:46 Ephedrine Sulfate (Ephedrine Sulfate) Confirm Administered Dose 50 mg .ROUTE .STK-MED ONE Stop: 05/01/17 07:17 Fentanyl (Sublimaze) Confirm Administered Dose 250 mcg .ROUTE .STK-MED ONE Stop: 05/01/17 06:56 Fentanyl (Sublimaze) 50 mcg IVPUSH Q45M PRN PRN Reason: Pain (moderate 4-6) Stop: 05/02/17 07:47 Glycopyrrolate (Robinul) Confirm Administered Dose 0.2 mg .ROUTE .STK-MED ONE Stop: 05/01/17 07:24 Glycopyrrolate (Robinul) Confirm Administered Dose 0.2 mg .ROUTE .STK-MED ONE Stop: 05/01/17 07:50 Ketorolac Tromethamine (Toradol) 30 mg IVPUSH Q6H NITIN Stop: 05/02/17 07:46 Last Admin: 05/02/17 07:31 Dose: 30 mg Midazolam HCl (Versed 1 Mg/Ml) Confirm Administered Dose 2 mg .ROUTE .STK-MED ONE Stop: 05/01/17 06:55 Morphine Sulfate (Duramorph Pf) Confirm Administered Dose 1 mg .ROUTE .STK-MED ONE Stop: 05/01/17 06:56 Nalbuphine HCl (Nubain) 5 mg IVPUSH Q3H PRN PRN Reason: Pruritis Stop: 05/02/17 07:46 Naloxone HCl (Narcan) 0.1 mg IVPUSH ONETIME PRN PRN Reason: Respiratory Depression Stop: 05/02/17 07:47 Octyl Cyanoacrylate (Dermabond Advance) Confirm Administered Dose 1 applic .ROUTE .STK-MED ONE Stop: 05/01/17 07:12 Ondansetron HCl (Zofran) Confirm Administered Dose 4 mg .ROUTE .STK-MED ONE Stop: 05/01/17 07:04 Oxytocin (Pitocin) Confirm Administered Dose 10 unit .ROUTE .STK-MED ONE Stop: 05/01/17 06:57 Oxytocin (Pitocin) Confirm Administered Dose 10 unit .ROUTE .STK-MED ONE Stop: 05/01/17 06:58 Propofol (Diprivan 20 Ml) Confirm Administered Dose 400 mg .ROUTE .STK-MED ONE Stop: 05/01/17 06:55 Propofol (Diprivan 20 Ml) Confirm Administered Dose 200 mg .ROUTE .STK-MED ONE Stop: 05/01/17 07:31 Succinylcholine Chloride (Succinylcholine In Ns Pf) Confirm Administered Dose 200 mg .ROUTE .STK-MED ONE Stop: 05/01/17 07:02 - Exam Wound/Incisions: Healing Well General: Alert, Oriented HEENT: Pupils Equal Neck: Supple Lungs: Clear to Auscultation, Normal Respiratory Effort Cardiovascular: Regular Rate, Regular Rhythm GI/Abdominal Exam: Normal Bowel Sounds, Soft, Non-Tender, No Organomegaly, No Distention, No Abnormal Bruit, No Mass, Pelvis Stable Extremities: Normal Inspection, Normal Range of Motion, Non-Tender, No Pedal Edema, Normal Capillary Refill Skin: Warm, Dry, Intact Neurological: No New Focal Deficit Psy/Mental Status: Alert, Normal Affect, Normal Mood - Problem List Review Problem List Initiated/Reviewed/Updated: Yes - My Orders Last 24 Hours: Active Orders 24 hr Category Date Time Status Regular Diet [DIET] Diet 05/01/17 Dinner Active Docusate Sodium [Colace] Med 05/01/17 09:00 Active 100 mg PO BID AN Neuroaxis Duramorph Precaution Reflex [OM.PC] PER Oth 05/02/17 07:45 Ordered UNIT ROUTINE Medication Orders Bisacodyl (Dulcolax) 10 mg RECTAL .ONCE PRN PRN Reason: Constipation Butorphanol Tartrate (Stadol) 1 mg IVPUSH Q1H PRN PRN Reason: Pain Carboprost Tromethamine (Hemabate Ds) 250 mcg IM ASDIRECTED PRN PRN Reason: Post Hemorrhage Diphenhydramine HCl (Benadryl) 25 mg IVPUSH Q6H PRN PRN Reason: Itching or Nausea Docusate Sodium (Colace) 100 mg PO BID [facility] Last Admin: 05/02/17 08:46 Dose: Admin: 05/02/17 07:31 Dose: 100 mg Admin: 05/01/17 21:31 Dose: 100 mg Admin: 05/01/17 13:58 Dose: Not Given Emollient Ointment (Lansinoh Hpa) 0 gm TOP ASDIRECTED PRN PRN Reason: Sore Nipples Lactated Ringer's (Ringers, Lactated) 1,000 mls @ 150 mls/hr IV ASDIRECTED [facility] Last Admin: 05/01/17 06:00 Dose: 150 mls/hr Tranexamic Acid 1,000 mg/ (Sodium Chloride) 110 mls @ 600 mls/hr IV ONETIME PRN PRN Reason: Bleeding Lactated Ringer's (Ringers, Lactated) 1,000 mls @ 125 mls/hr IV ASDIRECTED [facility] Ibuprofen (Motrin) 800 mg PO Q8H PRN PRN Reason: mild pain or fever Lidocaine HCl (Xylocaine 1%) 50 ml INJECT .ONCE PRN PRN Reason: Laceration repair Methylergonovine Maleate (Methergine) 0.2 mg IM ASDIRECTED PRN PRN Reason: Post Hemorrhage Misoprostol (Cytotec) 200 mcg PO .ONCE PRN PRN Reason: Post Hemorrhage Nalbuphine HCl (Nubain) 10 mg IVPUSH Q1H PRN PRN Reason: Pain (severe 7-10) Ondansetron HCl (Zofran) 4 mg IV Q4H PRN PRN Reason: Nausea/Vomiting Oxycodone/Acetaminophen (Percocet 325-5 Mg) 1 tab PO Q4H PRN PRN Reason: Pain (moderate 4-6) Oxycodone/Acetaminophen (Percocet 325-5 Mg) 2 tab PO Q4H PRN PRN Reason: Pain (moderate 4-6) Sodium Chloride (Saline Flush) 10 ml FLUSH ASDIRECTED PRN PRN Reason: Keep Vein Open Sodium Chloride (Saline Flush) 2.5 ml FLUSH ASDIRECTED PRN PRN Reason: Keep Vein Open Sterile Water (Sterile Water For Irrigation) 1,000 ml IRR ASDIRECTED PRN PRN Reason: delivery - Assessment Assessment (Free Text/Narrative):: Status post section postoperative day #1 patient is doing well incision is clean and dry she is ambulatory she on regular diet normal lochia - Plan Plan (Free Text/Narrative):: I am planning to discharge her home in a.m.
[2017-05-02] MEDS: Acetaminophen/oxyCODONE 325-5 MG Tab PO PRN ×2 (12:51→17:47)
[2017-05-02] MEDS: Ibuprofen 800 MG Tab PO PRN ×2 (13:54→22:15)
[2017-05-02] MEDS ORDERED: Simethicone 80 MG Tab.Chew PO PRN (17:56)
[2017-05-03] MEDS: Acetaminophen/oxyCODONE 325-5 MG Tab PO PRN ×2 (04:44→10:30)
[2017-05-03] MEDS: Docusate Sodium 100 MG Cap PO SCH (08:05)
[2017-05-03] MEDS: Ibuprofen 800 MG Tab PO PRN (08:05)
[2017-05-03 08:45] VITALS: BP 123/70
--- NOTE | 2017-05-03 10:55 | PCM.PNPP ---
- General Info Date of Service: 05/03/17 Functional Status: Reports: Pain Controlled - Review of Systems General: Reports: No Symptoms HEENT: Reports: No Symptoms Pulmonary: Reports: No Symptoms Cardiovascular: Reports: No Symptoms Gastrointestinal: Reports: No Symptoms Genitourinary: Reports: No Symptoms Musculoskeletal: Reports: No Symptoms Skin: Reports: No Symptoms Neurological: Reports: No Symptoms Psychiatric: Reports: No Symptoms - General Info Date of Service: 05/03/17 - Patient Data Vital Signs - Most Recent: Last Vital Signs Temp 36.8 C 05/03/17 08:00 Pulse 89 05/03/17 08:00 Resp 18 05/03/17 08:00 BP 123/70 05/03/17 08:00 Pulse Ox 99 05/03/17 08:00 Weight - Most Recent: 98.883 kg Lab Results - Last 24 Hours: Laboratory Results - last 24 hr 05/01/17 05/01/17 Range/Units 04:49 04:49 Blood Type O NEGATIVE Antibody Screen NEGATIVE Crossmatch See Detail See Detail Med Orders - Current: Current Medications Bisacodyl (Dulcolax) 10 mg RECTAL .ONCE PRN PRN Reason: Constipation Butorphanol Tartrate (Stadol) 1 mg IVPUSH Q1H PRN PRN Reason: Pain Carboprost Tromethamine (Hemabate Ds) 250 mcg IM ASDIRECTED PRN PRN Reason: Post Hemorrhage Diphenhydramine HCl (Benadryl) 25 mg IVPUSH Q6H PRN PRN Reason: Itching or Nausea Docusate Sodium (Colace) 100 mg PO BID [facility] Last Admin: 05/03/17 08:05 Dose: 100 mg Emollient Ointment (Lansinoh Hpa) 0 gm TOP ASDIRECTED PRN PRN Reason: Sore Nipples Last Admin: 05/02/17 20:59 Dose: 7 gm Lactated Ringer's (Ringers, Lactated) 1,000 mls @ 150 mls/hr IV ASDIRECTED [facility] Last Admin: 05/01/17 06:00 Dose: 150 mls/hr Tranexamic Acid 1,000 mg/ (Sodium Chloride) 110 mls @ 600 mls/hr IV ONETIME PRN PRN Reason: Bleeding Lactated Ringer's (Ringers, Lactated) 1,000 mls @ 125 mls/hr IV ASDIRECTED NITIN Ibuprofen (Motrin) 800 mg PO Q8H PRN PRN Reason: mild pain or fever Last Admin: 05/03/17 08:05 Dose: 800 mg Lidocaine HCl (Xylocaine 1%) 50 ml INJECT .ONCE PRN PRN Reason: Laceration repair Methylergonovine Maleate (Methergine) 0.2 mg IM ASDIRECTED PRN PRN Reason: Post Hemorrhage Misoprostol (Cytotec) 200 mcg PO .ONCE PRN PRN Reason: Post Hemorrhage Nalbuphine HCl (Nubain) 10 mg IVPUSH Q1H PRN PRN Reason: Pain (severe 7-10) Ondansetron HCl (Zofran) 4 mg IV Q4H PRN PRN Reason: Nausea/Vomiting Oxycodone/Acetaminophen (Percocet 325-5 Mg) 1 tab PO Q4H PRN PRN Reason: Pain (moderate 4-6) Last Admin: 05/03/17 04:44 Dose: 1 tab Oxycodone/Acetaminophen (Percocet 325-5 Mg) 2 tab PO Q4H PRN PRN Reason: Pain (moderate 4-6) Last Admin: 05/03/17 10:30 Dose: 2 tab Simethicone (Simethicone) 80 mg PO Q6H PRN PRN Reason: Gas Last Admin: 05/02/17 18:26 Dose: 80 mg Sodium Chloride (Saline Flush) 10 ml FLUSH ASDIRECTED PRN PRN Reason: Keep Vein Open Sodium Chloride (Saline Flush) 2.5 ml FLUSH ASDIRECTED PRN PRN Reason: Keep Vein Open Sterile Water (Sterile Water For Irrigation) 1,000 ml IRR ASDIRECTED PRN PRN Reason: delivery Discontinued Medications Diphenhydramine HCl (Benadryl) 25 mg IVPUSH Q4H PRN PRN Reason: Itching Stop: 05/02/17 07:46 Ephedrine Sulfate (Ephedrine Sulfate) Confirm Administered Dose 50 mg .ROUTE .STK-MED ONE Stop: 05/01/17 07:17 Fentanyl (Sublimaze) Confirm Administered Dose 250 mcg .ROUTE .STK-MED ONE Stop: 05/01/17 06:56 Fentanyl (Sublimaze) 50 mcg IVPUSH Q45M PRN PRN Reason: Pain (moderate 4-6) Stop: 05/02/17 07:47 Glycopyrrolate (Robinul) Confirm Administered Dose 0.2 mg .ROUTE .STK-MED ONE Stop: 05/01/17 07:24 Glycopyrrolate (Robinul) Confirm Administered Dose 0.2 mg .ROUTE .STK-MED ONE Stop: 05/01/17 07:50 Ketorolac Tromethamine (Toradol) 30 mg IVPUSH Q6H NITIN Stop: 05/02/17 07:46 Last Admin: 05/02/17 07:31 Dose: 30 mg Midazolam HCl (Versed 1 Mg/Ml) Confirm Administered Dose 2 mg .ROUTE .STK-MED ONE Stop: 05/01/17 06:55 Morphine Sulfate (Duramorph Pf) Confirm Administered Dose 1 mg .ROUTE .STK-MED ONE Stop: 05/01/17 06:56 Nalbuphine HCl (Nubain) 5 mg IVPUSH Q3H PRN PRN Reason: Pruritis Stop: 05/02/17 07:46 Naloxone HCl (Narcan) 0.1 mg IVPUSH ONETIME PRN PRN Reason: Respiratory Depression Stop: 05/02/17 07:47 Octyl Cyanoacrylate (Dermabond Advance) Confirm Administered Dose 1 applic .ROUTE .STK-MED ONE Stop: 05/01/17 07:12 Ondansetron HCl (Zofran) Confirm Administered Dose 4 mg .ROUTE .STK-MED ONE Stop: 05/01/17 07:04 Oxytocin (Pitocin) Confirm Administered Dose 10 unit .ROUTE .STK-MED ONE Stop: 05/01/17 06:57 Oxytocin (Pitocin) Confirm Administered Dose 10 unit .ROUTE .STK-MED ONE Stop: 05/01/17 06:58 Propofol (Diprivan 20 Ml) Confirm Administered Dose 400 mg .ROUTE .STK-MED ONE Stop: 05/01/17 06:55 Propofol (Diprivan 20 Ml) Confirm Administered Dose 200 mg .ROUTE .STK-MED ONE Stop: 05/01/17 07:31 Succinylcholine Chloride (Succinylcholine In Ns Pf) Confirm Administered Dose 200 mg .ROUTE .STK-MED ONE Stop: 05/01/17 07:02 - Infant Interaction Disposition, : in Room with Family Infant Interaction: Holding Infant Feeding: Attempted ; Nursed Fair/Poor Support Person: - Recovery Exam Fundal Tone: Firm Fundal Level: 1 Fingerbreadths Below Umbilicus Fundal Placement: Midline Lochia Amount: Scant Lochia Color: Rubra/Red Perineum Description: Intact, Minimal Bruising/Swelling Episiotomy/Laceration: None Bladder Status: Voiding Urinary Elimination: Voided - Exam General: Alert, Oriented HEENT: Pupils Equal Neck: Supple Lungs: Clear to Auscultation, Normal Respiratory Effort Cardiovascular: Regular Rate, Regular Rhythm GI/Abdominal Exam: Normal Bowel Sounds, Soft, Non-Tender, No Organomegaly, No Distention, No Abnormal Bruit, No Mass, Pelvis Stable Extremities: Normal Inspection, Normal Range of Motion, Non-Tender, No Pedal Edema, Normal Capillary Refill Skin: Warm, Dry, Intact Wound/Incisions: Healing Well Neurological: No New Focal Deficit Psy/Mental Status: Alert, Normal Affect, Normal Mood - Problem List Review Problem List Initiated/Reviewed/Updated: Yes - My Orders Last 24 Hours: My Active Orders 05/02/17 17:56 Simethicone 80 mg PO Q6H PRN 05/03/17 10:06 Ready for Discharge [RC] PER UNIT ROUTINE - Plan Plan:: A: 21 yo EDC 05/09[birth year]2017 38 6/7wks comes today due to mary bleeding in 3rd trimester, O-, R-NI, GBS neg. P: admit, ultrasound for placenta placement, labs, Will call Dr Calderon if continues bleeding. A: No active bleeding at this time. VSS, AF, Cat I tracing, Ctx q5min palp mod. P: continue to monitor and observe. Dr Calderon in L&D and has examined the pt.
== END 2017-05-03 12:00 | disposition home or self-care (01) | DRG 766 ==
LOC: MW.OBCHECK 04:08 → MW.OB 04:12 → MW.OBCHECK 04:41 → OBSVTOIN 07:25 → MW.OB 09:47
PROVIDERS: ADMIT Obstetrics & Gynecology; ATTEND Obstetrics & Gynecology
PROC: 10D00Z1 Extraction of Products of Conception, Low, Open Approach (ICD-10-PCS; principal; 2017-05-01)
DX: O45.93 Premature separation of placenta, unspecified, third trimester (principal); Z3A.38 38 weeks gestation of pregnancy; Z37.0 Single live birth; Z88.8 Allergy status to other drugs, medicaments and biological substances
CPT/HCPCS: 36415; 59025; 76817; 76817-26; 80305; 85014; 85018; 85027; 88307; A9270-GY; J1885; J2250; J2274; J2405; J2590; J2704; J3010; J7120